=== PATIENT | male | born 1945 | race Caucasian/White ===

== ENCOUNTER 2020-03-20 11:56 | Emergency (ER) | payer MEDICARE, OTHER, SELFPAY ==
[2020-03-20 12:08] VITALS: BP 134/74; PULSE 74; RESP 18; TEMP 37.1; O2SAT 98
--- NOTE | 2020-03-20 12:11 | ED.URI ---
HPI - URI/Sore Throat General Chief Complaint: Upper Respiratory Infection Stated Complaint: upper respiratory infection Time Seen by Provider: 03/20/20 12:11 History of Present Illness HPI Narrative: Adalberto Nichols is a 74 yo male with a PMH of overactive bladder, HTN, GERD, high cholesterol, AAA, who comes to express care with scratchy throat and right ear pain that started on Tuesday. Ctzy-oja-pentcws treatment with no success with nyquil Related Data Home Medications Medication Instructions Recorded Confirmed Lactobac 40-Bifido 3-S.thermop 1 cap PO DAILY 03/20/20 03/20/20 [Probiotic] aspirin 81 mg PO DAILY 03/20/20 03/20/20 cetirizine [Zyrtec] 5 mg PO DAILY 03/20/20 03/20/20 finasteride [Proscar] 5 mg PO DAILY 03/20/20 03/20/20 fluticasone propionate [Flonase 1 spray INTRANASAL BID 03/20/20 03/20/20 Allergy Relief] metoprolol succinate [Toprol XL] 50 mg PO DAILY 03/20/20 03/20/20 mirabegron [Myrbetriq] 50 mg PO DAILY 03/20/20 03/20/20 cbktuncj-duf-AW-lycopen-lutein 1 tablet PO DAILY 03/20/20 03/20/20 [Centrum Silver] nystatin 1 applic TOPICAL DAILY 03/20/20 03/20/20 omega 1-xfw-ahp-fish oil [Fish Oil] 1 cap PO DAILY 03/20/20 03/20/20 pantoprazole [Protonix] 40 mg PO DAILY 03/20/20 03/20/20 psyllium husk [Metamucil] 1 tsp PO DAILY 03/20/20 03/20/20 simvastatin [Zocor] 40 mg PO DAILY 03/20/20 03/20/20 Allergies Allergy/AdvReac Type Severity Reaction Status Date / Time codeine AdvReac Severe VOMITING Verified 08/29/19 09:53 Review of Systems Review of Systems: Narrative: CONSTITUTIONAL: Denies fever, chills, sweats. EYES: Denies visual changes, redness, discharge. ENT: Denies rhinorrhea, has congestion, has sore throat, right otalgia. CARDIOVASCULAR: Denies chest pain, palpitations, edema. RESPIRATORY: Denies dyspnea, wheezing, cough GASTROINTESTINAL: Denies abdominal pain, nausea, vomiting, diarrhea. GENITOURINARY: Denies dysuria, hematuria, abnormal discharge SKIN: Denies rash or itching. NEUROLOGIC: Denies numbness, or focal weakness. PSYCHIATRIC: Denies anxiety or depression. [facility] Family History Family History Sibling Patient's brother is in good health Other Diabetes mellitus Family history of cardiovascular disease Hypertension Social History Social History Smoking status: Never smoker Alcohol intake: current Gender identity (if verbalized by the patient): Male Comments At time of signature, I agree with nursing past medical, surgical, social and family history. There is no relevant family history pertinent to the presenting complaint. Exam Narrative: Exam Narrative: GENERAL: This is a well-nourished, well-developed patient, in mild distress. HEAD: normocephalic, atraumatic. EYES: PERRL. Sclera clear/white. Vision is grossly intact. EARS: External ears normal, auditory L canal clear ,R tender, mild erythema. TMs normal without perforation. Hearing grossly intact. NOSE: External nose normal with nasal discharge, nares with redness, no rhinorrhea. THROAT: Mucous membranes moist, posterior pharynx erythema, no exudate NECK: Neck supple, non-tender CARDIOVASCULAR: Regular rate and rhythm without murmurs, gallops, or rubs. RESPIRATORY: Clear to auscultation. Breath sounds equal bilaterally. No wheezes, rales, or rhonchi. GASTROINTESTINAL: Abdomen soft, SKIN: warm, intact with no suspicious lesions or rash, good texture and turgor. NEURO: awake, alert, and oriented to person, place and time. There were no obvious focal neurologic abnormalities. Steady gait EXTREMITIES: Normal range of motion. BACK: Nontender without deformity Course Course Emergency Course: Started on prednsione and augmentin- discussed pros and cons of abx with sinuses, has hx of getting really ill without them Vital Signs Vital signs: Vital Signs Temperature 98.7 F 03/20/20 12:08 Pulse Ra
== END 2020-03-20 12:27 | disposition home or self-care (01) ==
PROVIDERS: Emergency Provider Nurse Practitioner
DX: J01.01 Acute recurrent maxillary sinusitis (principal); H66.001 Acute suppurative otitis media without spontaneous rupture of ear drum, right ear; I10 Essential (primary) hypertension; K21.9 Gastro-esophageal reflux disease without esophagitis; E78.00 Pure hypercholesterolemia, unspecified; I71.4 Abdominal aortic aneurysm, without rupture
CPT/HCPCS: 99213; G0463

== ENCOUNTER 2020-04-02 11:00 | Outpatient (CLI) | payer MEDICARE, OTHER, SELFPAY ==
--- NOTE | ~2020-04-02 | CT_ITS ---
EXAMINATION:CT chest wo con DATE: 04/02/2020 11:42 INDICATION: Aortic root dilatation. TECHNIQUE: Computed tomography (CT) of the chest was performed without intravenous contrast. Automate d exposure control and iterative reconstruction technique were employed. The dose-length product (DLP ) was 644.49 mGy-cm. COMPARISON: Chest CT 06/21/2019 FINDINGS: There is mild atelectasis bilaterally. No pleural effusion. The heart size is normal. There are coronary artery calcifications. No pericardial effusion. Thoracic aorta measures 4.7 cm at the s inuses of Valsalva, 3.9 cm at the annulus, 4.1 cm in the mid ascending aorta, 3.1 cm at the isthmus, and 2.8 cm in mid descending aorta. There is mild thoracic spondylosis. IMPRESSION: 1. Stable ectasia of ascending aorta. Reviewed, dictated and finalized at location A.
== END 2020-04-02 11:01 | disposition home or self-care (01) ==
PROVIDERS: Visit Provider Internal Medicine Cardiovascular Disease
DX: I77.810 Thoracic aortic ectasia (principal); I10 Essential (primary) hypertension
CPT/HCPCS: 71250

== ENCOUNTER 2020-09-14 10:42 | Emergency (ER) | payer MEDICARE, OTHER, SELFPAY ==
--- NOTE | 2020-09-14 10:45 | ED.SKABFB ---
HPI - Skin/Abscess/Foreign Bdy General Chief complaint: Skin/Abscess/Foreign Body Stated complaint: boil Time Seen by Provider: 09/14/20 10:55 Source: patient and RN notes reviewed Mode of arrival: ambulatory Limitations: no limitations History of Present Illness HPI narrative: 75-year male presents concern for a boil in his left axilla. Reports he has had a skin colored small bump in that area for many years, reports in the last several days the area turned red, tender and had purulent drainage. He denies any fever, malaise, arm swelling. MD complaint: abscess/boil Related Data Home Medications Medication Instructions Recorded Confirmed Lactobac 40-Bifido 3-S.thermop 1 cap PO DAILY 03/20/20 09/01/20 [Probiotic] aspirin 81 mg PO DAILY 03/20/20 09/01/20 cetirizine [Zyrtec] 5 mg PO DAILY 03/20/20 09/01/20 finasteride [Proscar] 5 mg PO DAILY 03/20/20 09/01/20 fluticasone propionate [Flonase 1 spray INTRANASAL BID 03/20/20 09/01/20 Allergy Relief] metoprolol succinate [Toprol XL] 50 mg PO DAILY 03/20/20 09/01/20 mirabegron [Myrbetriq] 50 mg PO DAILY 03/20/20 09/01/20 gasxhxoj-koo-OH-lycopen-lutein 1 tablet PO DAILY 03/20/20 09/01/20 [Centrum Silver] nystatin 1 applic TOPICAL DAILY 03/20/20 09/01/20 omega 9-ndq-jos-fish oil [Fish Oil] 1 cap PO DAILY 03/20/20 09/01/20 pantoprazole [Protonix] 40 mg PO DAILY 03/20/20 09/01/20 psyllium husk [Metamucil] 1 tsp PO DAILY 03/20/20 09/01/20 simvastatin [Zocor] 40 mg PO DAILY 03/20/20 09/01/20 Allergies Allergy/AdvReac Type Severity Reaction Status Date / Time codeine AdvReac Severe VOMITING Verified 09/01/20 10:56 Review of Systems Review of Systems: Narrative: CONSTITUTIONAL: Denies malaise, chills, sweats, or fever. CARDIOVASCULAR: Denies chest pain, palpitations, or edema. RESPIRATORY: Denies cough or dyspnea. SKIN: Painful red bump with drainage under his left arm MUSCULOSKELETAL: Denies musculoskeletal pain, myalgia. All systems reviewed & are unremarkable except as noted in HPI and below PMFSH Past Medical History Medical History (Updated 09/14/20 @ 11:07 by Ethel To NP) AAA (abdominal aortic aneurysm) Chronic pain of both knees Essential hypertension GERD (gastroesophageal reflux disease) High cholesterol HTN (hypertension) Rhinitis Surgical History Surgical History S/P trigger finger release Family History Family History Sibling Patient's brother is in good health Other Diabetes mellitus Family history of cardiovascular disease Hypertension Social History Social History Smoking status: Never smoker Alcohol intake: current Gender identity (if verbalized by the patient): Male Comments At time of signature, agree with nursing past medical, surgical, social and family history. There is no relevant family history pertinent to the presenting complaint Exam Narrative: Exam Narrative: GENERAL: Well-appearing, well-nourished, and in no acute distress. HEAD: Normocephalic EYES: PERRLA, conjunctivae clear ENT: Mucous membranes moist. NECK: Supple. CHEST: No respiratory distress. Speaks in full sentences. HEART: Regular rate and rhythm. SKIN: Warm, dry. 1 cm diameter erythematous papule with central scab surrounded by mild area of induration, erythema, no fluctuation noted NEURO: Alert and oriented x3. PSYCH: Normal mood and affect Course Course Emergency Course: Patient is aware of diagnosis, understands and agrees to treatment plan. Anticipatory guidance given. Patient agrees to follow-up as directed and is aware of reasons to seek care at the emergency department. Portions of this record may have been created with voice recognition software Vital Signs Vital signs: Vital Signs Temperature 97.7 F 09/14/20 10:54 Pulse Rate 63 09/14/20 10:54 Respiratory
[2020-09-14 10:54] VITALS: BP 165/98; PULSE 63; RESP 20; TEMP 36.5; O2SAT 100
== END 2020-09-14 11:11 | disposition home or self-care (01) ==
PROVIDERS: Emergency Provider Nurse Practitioner
DX: L02.422 Furuncle of left axilla (principal); I10 Essential (primary) hypertension; K21.9 Gastro-esophageal reflux disease without esophagitis; E78.00 Pure hypercholesterolemia, unspecified
CPT/HCPCS: 99213; G0463

== ENCOUNTER 2020-10-03 10:47 | Emergency (ER) | payer MEDICARE, OTHER, SELFPAY ==
[2020-10-03 11:08] VITALS: BP 148/82; PULSE 66; RESP 18; TEMP 36.6; O2SAT 97
--- NOTE | 2020-10-03 11:22 | ED.SKABFB ---
HPI - Skin/Abscess/Foreign Bdy General Chief complaint: Skin/Abscess/Foreign Body Stated complaint: infection on lips Time Seen by Provider: 10/03/20 11:08 Source: patient and RN notes reviewed Mode of arrival: ambulatory Limitations: no limitations History of Present Illness HPI narrative: Patient presents today complaining of a rash on his lower back x2 weeks. He believes it may be a heat rash. He reports occasional itching and no pain. Denies drainage. He has tried no treatment prior to arrival. States he does scrub it profusely in the shower with this washcloth. He also comes in complaining of cracking and pain to the corners of his mouth. Reports this has been occurring intermittently over the past 30 years for which she occasionally uses first-aid cream or Neosporin which usually takes care of the symptoms within 4 weeks. Pain typically increases if he opens his mouth very wide to eat. He was at his dentist a few months ago and was having symptoms and was given tube of nystatin. He applied it, which did help with the symptoms, but also caused his lips to become inflamed. He has an appointment with follow-up physician in a couple of months, but wanted to come in for evaluation today. Use Chapstick on the remainder multiple times per day. MD complaint: rash Related Data Home Medications Medication Instructions Recorded Confirmed Lactobac 40-Bifido 3-S.thermop 1 cap PO DAILY 03/20/20 10/03/20 [Probiotic] aspirin 81 mg PO DAILY 03/20/20 10/03/20 cetirizine [Zyrtec] 5 mg PO DAILY 03/20/20 10/03/20 finasteride [Proscar] 5 mg PO DAILY 03/20/20 10/03/20 fluticasone propionate [Flonase 1 spray INTRANASAL BID 03/20/20 10/03/20 Allergy Relief] metoprolol succinate [Toprol XL] 50 mg PO DAILY 03/20/20 10/03/20 mirabegron [Myrbetriq] 50 mg PO DAILY 03/20/20 09/01/20 nrjbijng-bln-CN-lycopen-lutein 1 tablet PO DAILY 03/20/20 10/03/20 [Centrum Silver] nystatin 1 applic TOPICAL DAILY 03/20/20 10/03/20 omega 2-frf-xcs-fish oil [Fish Oil] 1 cap PO DAILY 03/20/20 10/03/20 pantoprazole [Protonix] 40 mg PO DAILY 03/20/20 10/03/20 psyllium husk [Metamucil] 1 tsp PO DAILY 03/20/20 10/03/20 simvastatin [Zocor] 40 mg PO DAILY 03/20/20 10/03/20 finasteride 5 mg PO DAILY 10/03/20 10/03/20 nystatin [Nystop] 1,000 unit TOPICAL USEASDIRECTD 10/03/20 10/03/20 Allergies Allergy/AdvReac Type Severity Reaction Status Date / Time codeine AdvReac Severe VOMITING Verified 09/01/20 10:56 Review of Systems Review of Systems: Narrative: CONSTITUTIONAL: Denies body aches, fever, chills, or sweats. EYES: Denies visual changes, redness, or discharge. ENT: Denies rhinorrhea, congestion, sore throat, or otalgia. CARDIOVASCULAR: Denies chest pain, palpitations, or edema. RESPIRATORY: Denies cough or dyspnea. GASTROINTESTINAL: Denies abdominal pain, nausea, vomiting, or diarrhea. GENITOURINARY: Denies dysuria or hematuria. SKIN: Cracking at the corners of the mouth, rash to low back MUSCULOSKELETAL: Denies back pain, joint pain, or myalgia. NEUROLOGIC: Denies headache, numbness, tingling, or weakness. PSYCH: Denies depression or anxiety. [facility] Past Medical History Medical History (Updated 10/03/20 @ 11:24 by Roxana Kahn, [facility], ) AAA (abdominal aortic aneurysm) Chronic pain of both knees Essential hypertension GERD (gastroesophageal reflux disease) High cholesterol History of diverticulitis HTN (hypertension) Hx of hemorrhoids Rhinitis Surgical History Surgical History (Updated 09/26/20 @ 14:55 by Migue Vaughn CMA) History of artificial lens replacement History of colonoscopy 11/05/03, 04/23/05, 04/15/10, 06/22/13, 01/25/18, Hx of basal cell carcinoma excision Hx of prostate biopsy S/P trigger finger release Family History Family History (Updated 09/26/20 @ 11:54 by Migue Vaughn CMA) Sibling Patient's brother is in good health Father Acute myocardial infarction Grandparent , Paternal Grandfather Wi
== END 2020-10-03 11:31 | disposition home or self-care (01) ==
PROVIDERS: Emergency Provider Nurse Practitioner
DX: K13.0 Diseases of lips (principal); L30.9 Dermatitis, unspecified; I10 Essential (primary) hypertension; K21.9 Gastro-esophageal reflux disease without esophagitis; E78.00 Pure hypercholesterolemia, unspecified; Z96.1 Presence of intraocular lens; Z85.828 Personal history of other malignant neoplasm of skin
CPT/HCPCS: 99211; G0463

== ENCOUNTER → 2021-01-06 07:31 | Outpatient (CLI) | payer MEDICARE, OTHER, SELFPAY ==
[2021-01-06 20:30] LABS: SARS-CoV-2 RNA PCR Negative
== END ==
PROVIDERS: Visit Provider Family Medicine
DX: Z20.822 Contact with and (suspected) exposure to COVID-19 (principal)
CPT/HCPCS: C9803; U0003; U0005

== ENCOUNTER 2021-04-20 10:37 | Outpatient (CLI) | payer MEDICARE, OTHER, SELFPAY ==
--- NOTE | ~2021-04-20 | CT_ITS ---
EXAMINATION:CT diagnostic chest wo con DATE: 04/20/2021 11:11 INDICATION: Thoracic aortic aneurysm. TECHNIQUE: Computed tomography (CT) of the chest was performed without intravenous contrast. Automate d exposure control and iterative reconstruction technique were employed. The dose-length product (DLP ) was 448.21 mGy-cm. COMPARISON: Chest CT 04/02/2020, 02/25/12 FINDINGS: The lungs demonstrate mild atelectasis. No pleural effusion. There is a 1.6 cm nodule in le ft thyroid lobe, worsened from 02/25/12. The heart size is normal. There are coronary artery calcificat ions. No pericardial effusion. The aorta measures 4.4 cm at the sinuses of Valsalva, 3.7 cm at the si notubular junction, 4.0 cm in the mid ascending aorta, 3.1 cm at the isthmus, and 3.0 cm in the mid d escending aorta. There is mild thoracic spondylosis. IMPRESSION: 1. Stable ectasia of ascending aorta. 2. 1.6 cm left thyroid nodule. Consider thyroid ultrasound for risk stratification. Reviewed, dictated and finalized at location A. IMPRESSION: 1. Stable ectasia of ascending aorta. 2. 1.6 cm left thyroid nodule. Consider thyroid ultrasound for risk stratificat ion.
== END 2021-04-20 10:38 | disposition home or self-care (01) ==
PROVIDERS: Visit Provider Internal Medicine Cardiovascular Disease
DX: I77.810 Thoracic aortic ectasia (principal); E04.1 Nontoxic single thyroid nodule
CPT/HCPCS: 71250

== ENCOUNTER 2021-05-22 12:18 | Outpatient (CLI) | payer MEDICARE, OTHER, SELFPAY ==
--- NOTE | ~2021-05-22 | US_ITS ---
EXAMINATION: US thyroid DATE: 05/22/2021 16:16 INDICATION: Nontoxic single thyroid nodule. TECHNIQUE: Multiple ultrasound images of the thyroid were obtained. COMPARISON: None. FINDINGS: The right thyroid lobe measures 4.6 x 1.8 x 1.5 cm. The left thyroid lobe measures 4.2 x 1.8 x 1.9 c m. In the left thyroid lobe, there is a 2.1 cm mixed cystic and solid, hypoechoic, dvixb-[id number]-lmkl n odule with ill-defined margin without echogenic foci (TI-RADS TR3). There is a 3 mm nodule in right t hyroid lobe. IMPRESSION: 1. Left thyroid nodule. Thyroid ultrasound is recommended in one year. Reviewed, dictated and finalized at location A.
== END 2021-05-22 12:19 | disposition home or self-care (01) ==
LOC: ANHIMG 12:22
PROVIDERS: PCP Family Medicine; Visit Provider Otolaryngology
DX: E04.1 Nontoxic single thyroid nodule (principal)
CPT/HCPCS: 76536

== ENCOUNTER 2022-01-16 19:09 | Emergency (ER) | payer MEDICARE, OTHER, SELFPAY ==
[2022-01-16 19:18] VITALS: BP 132/71; PULSE 79; RESP 18; TEMP 37.1; O2SAT 96
--- NOTE | 2022-01-16 19:44 | ED.GENADULT ---
HPI - General Adult General Chief complaint: Upper Respiratory Infection Stated complaint: sorethroat,cough Source: patient Mode of arrival: ambulatory Limitations: no limitations History of Present Illness HPI narrative: Patient presents for evaluation of respiratory symptoms for the last 2 days. He reports sinus congestion, thick yellow discharge from his nares, sore throat, body aches. No fever, chills, nausea, vomiting. Two of his friends were recently ill but isolated and pt does not think he was exposed to any illness. He has received COVID vaccination x2 and both boosters. He does not smoke. He is using Flonase, cetirizine, DayQuil and NyQuil with mild improvement in his symptoms. He does admit to coughing up some phlegm but states it is from post-nasal drainage as opposed to chest congestion. He denies any SOB or chest pain. Related Data Home Medications Medication Instructions Recorded Confirmed hxeaxasw-tjc-KH-lycopen-lutein 1 tablet PO DAILY 03/20/20 01/16/22 [Centrum Silver] omega 5-oks-oxt-fish oil [Fish Oil] 1 cap PO DAILY 03/20/20 01/16/22 psyllium husk [Metamucil] 1 tsp PO DAILY 03/20/20 01/16/22 finasteride 5 mg tablet 5 mg PO DAILY 12/18/20 01/16/22 mirabegron 50 mg tablet,extended 50 mg PO DAILY 12/18/20 01/16/22 release 24 hr ketoconazole 2 % topical cream 1 applic TOPICAL DAILY 09/01/21 01/16/22 Allergies Allergy/AdvReac Type Severity Reaction Status Date / Time codeine AdvReac Severe VOMITING Verified 01/16/22 19:32 Review of Systems Review of Systems: CONSTITUTIONAL: Denies fever, chills, or sweats. EYES: Denies visual changes, redness, or discharge. ENT: Reports sinus congestion, yellow drainage from his nares and sore throat. CARDIOVASCULAR: Denies chest pain, palpitations, or edema. RESPIRATORY: Denies cough or dyspnea. GASTROINTESTINAL: Denies abdominal pain, nausea, vomiting, or diarrhea. GENITOURINARY: Denies dysuria or hematuria. SKIN: Denies rash or itching. MUSCULOSKELETAL: Reports body aches NEUROLOGIC: Denies headache, numbness, dizziness, or weakness. PSYCHIATRIC: Denies anxiety or depression. [facility] Past Medical History Medical History AAA (abdominal aortic aneurysm) CT of the chest on 04/20/2021 with thoracic aorta 4.4 cm, 3.7 cm, and 4.0 cm, unchanged. Bilateral hip bursitis BMI 30.0-30.9,adult BMI 31.0-31.9,adult BPH without obstruction/lower urinary tract symptoms followed by urologist Chronic kidney disease (CKD) stage G3a/A1, moderately decreased glomerular filtration rate (GFR) between 45-59 mL/min/1.73 square meter and albuminuria creatinine ratio less than 30 mg/g Chronic pain of both knees Edema of knee Elevated PSA elevated at 21 on 08/28/2014 Encounter for screening for other viral diseases Essential hypertension GERD (gastroesophageal reflux disease) High cholesterol History of diverticulitis HTN (hypertension) Hx of hemorrhoids Increased BMI Mixed hyperlipidemia Polyp of colon last colonoscopy 01/25/2018 normal Rhinitis Seasonal allergic rhinitis Sebaceous cyst Thyroid nodule greater than or equal to 1.5 cm in diameter incidentally noted on imaging study (~02/25/12) 1.6 cm nodule left thyroid lobe on CT of the chest on 04/20/2021, increased from 02/25/2012. Surgical History Surgical History History of artificial lens replacement History of colonoscopy 11/05/03, 04/23/05, 04/15/10, 06/22/13, 01/25/18, Hx of basal cell carcinoma excision Hx of prostate biopsy S/P trigger finger release Family History Family History Sibling Patient's brother is in good health Father Acute myocardial infarction Grandparent , Paternal Grandfather Carroll at age 55 Acute myocardial infarction Grandparent , Maternal Grandfather Acute myocardial infarction S
== END 2022-01-16 19:49 | disposition home or self-care (01) ==
PROVIDERS: Emergency Provider Nurse Practitioner; PCP Family Medicine
DX: U07.1 COVID-19 (principal); I12.9 Hypertensive chronic kidney disease with stage 1 through stage 4 chronic kidney disease, or unspecified chronic kidney disease; N18.31 Chronic kidney disease, stage 3a; E78.2 Mixed hyperlipidemia
CPT/HCPCS: 87081; 87426; 87804; 87880; 99213; C9803; G0463

== ENCOUNTER 2022-04-22 12:53 | Outpatient (CLI) | payer MEDICARE, OTHER, SELFPAY ==
--- NOTE | ~2022-04-22 | CT_ITS ---
EXAMINATION: CT diagnostic chest wo con DATE: 04/22/2022 13:16 INDICATION: Aortic root dilatation TECHNIQUE: Computed tomography (CT) of the chest was performed without intravenous contrast. Addition al 3D reconstructions utilizing coronal maximum intensity projection (MIP) were performed. Automated exposure control and iterative reconstruction technique were employed. The dose-length product was 49 2.27 mGy-cm. COMPARISON: 04/20/2021 FINDINGS: Linear discoid atelectasis/scarring in the basilar left lower lobe. No pneumonia, pulmonary edema or pleural effusion. Unchanged 2 mm calcified calcified left lower lobe nodule consistent with old granu lomatous disease. Heart size is normal. Atherosclerotic coronary artery calcific location. No pericar dial effusion. Aneurysmal dilation of the ascending thoracic aorta measuring 4.4 to 4.5 cm at the sin us of Valsalva, 3.7 x 3.5 cm at the sinotubular junction, 4.2 x 4.2 cm at the mid ascending thoracic aorta 3.2 x 3.3 cm the isthmus and 3.0 x 2.9 cm in the mid descending thoracic aorta. No pathological ly enlarged abdominal or pelvic lymphadenopathy. No significant change in a 2 cm left thyroid nodule, TI-RADS 3 on ultrasound dated 05/22/2021. Tiny calcified gallstones along the dependent wall of the ot herwise normal appearing gallbladder. Visualized upper abdomen is otherwise unremarkable. Moderate th oracic spondylosis with chronic minimal anterior wedging at T7-T9. IMPRESSION: 1. No significant interval change in ectasia of the ascending thoracic aorta. Reviewed, dictated and finalized at location A.
== END 2022-04-22 12:54 | disposition home or self-care (01) ==
LOC: ANHIMG 12:56
PROVIDERS: PCP Family Medicine; Visit Provider Internal Medicine Cardiovascular Disease
DX: I77.810 Thoracic aortic ectasia (principal); I25.10 Atherosclerotic heart disease of native coronary artery without angina pectoris; M47.814 Spondylosis without myelopathy or radiculopathy, thoracic region; M48.54XA Collapsed vertebra, not elsewhere classified, thoracic region, initial encounter for fracture
CPT/HCPCS: 71250

== ENCOUNTER 2022-10-21 10:55 | Outpatient (CLI) | payer MEDICARE, OTHER, SELFPAY ==
--- NOTE | ~2022-10-21 | CT_ITS ---
CT Scan of the Chest without Contrast: Clinical Indication: Aortic root dilatation Technique: Contiguous sections were acquired throughout the chest without intravenous contrast. Dose reduction technique was used on this scan by utilizing automated exposure control and iterative recon struction technique. The dose-length product (DLP) was 643.03 mGy-cm. COMPARISON: 04/22/2022 Findings: There is no evidence of any significant mediastinal, hilar or axillary lymphadenopathy. Coronary ozzy ry calcifications are present. Aortic root/ascending aorta is mildly dilated to maximum of 4.4 cm in diameter. There is no evidence of pleural or pericardial effusion. The lungs are clear. No pulmonary nodules or infiltrates are noted. Images through the upper abdomen reveal no abnormalities. Impression: Mild aneurysmal dilatation ascending aorta, as detailed above, essentially stable from prior exam. Reviewed, dictated and finalized at [facility]. [facility] [employer] Impression: Mild aneurysmal dilatation ascending aorta, as detailed above, essentially stab le from prior exam.
== END 2022-10-21 10:56 | disposition home or self-care (01) ==
PROVIDERS: PCP Family Medicine; Visit Provider Internal Medicine Cardiovascular Disease
DX: I77.810 Thoracic aortic ectasia (principal)
CPT/HCPCS: 71250

== ENCOUNTER 2022-11-26 11:44 | Emergency (ER) | payer MEDICARE, OTHER, SELFPAY ==
[2022-11-26 11:55] VITALS: BP 125/69; PULSE 60; RESP 18; TEMP 36.4; O2SAT 97
--- NOTE | 2022-11-26 11:55 | ED.WOUNDLAC ---
HPI - Wound/Laceration General Chief Complaint: Wound/Laceration Stated Complaint: rt foot laceration,fall Time Seen by Provider: 11/26/22 11:55 Source: patient, RN notes reviewed and old records reviewed Mode of arrival: ambulatory Limitations: no limitations History of Present Illness HPI narrative: 77-year-old male presents to the [facility] with a wound to the dorsal aspect right great toe. Patient states 2 weeks ago he tripped and fell causing abrasions to the tops of his toes. Rest of the abrasions are healing, redness, inflammation and yellow discharge started today. Has been keeping a bandage on it, cleaning it and applying antibiotic ointment Related Data Home Medications Medication Instructions Recorded Confirmed aiuphurp-hin-morfc acid 0.4 1 tablet PO DAILY 03/20/20 11/26/22 mg-lycopene 300 mcg-lutein 250 mcg tablet (Centrum Silver) omega 4-qxg-htk-fish oil 1,000 mg 1 cap PO DAILY 03/20/20 11/26/22 (120 mg-180 mg) capsule (Fish Oil) psyllium husk 3.4 gram/5.4 gram 1 tsp PO DAILY 03/20/20 11/26/22 oral powder (Metamucil) finasteride 5 mg tablet 5 mg PO DAILY 12/18/20 11/26/22 mirabegron 50 mg tablet,extended 50 mg PO DAILY 12/18/20 11/26/22 release 24 hr (Myrbetriq) rosuvastatin 40 mg tablet (Crestor) 40 mg PO DAILY 05/27/22 11/26/22 ketoconazole 2 % topical cream 1 applic topical BID 11/26/22 11/26/22 Allergies Allergy/AdvReac Type Severity Reaction Status Date / Time codeine AdvReac Intermediate VOMITING Verified 11/26/22 11:53 Review of Systems Review of Systems: All systems reviewed & are unremarkable except as noted in HPI and below Constitutional: Constitutional: Reports no additional constitutional complaints Eyes: Eyes: Reports no additional eye complaints ENT: Reports system reviewed and no additional complaints, except as documented Cardiovascular: Cardiovascular: Reports no additional cardiovascular complaints, Denies chest pain and Denies dyspnea Respiratory: Respiratory: Reports no additional respiratory complaints, Denies chest congestion, Denies cough and Denies dyspnea Gastrointestinal: Gastrointestinal: Reports no additional gastrointestinal complaints, Denies abdominal pain, Denies nausea and Denies vomiting Musculoskeletal: Musculoskeletal: Reports no additional musculoskeletal complaints Integumentary/Breasts: Skin/Breast: Reports as per HPI, Reports swelling and Reports wounds Neurologic: Reports system reviewed and no additional complaints, except as documented Psychiatric: Psychiatric: Reports no additional psychiatric complaints Allergic/Immunologic: Allergic/Immunologic: Reports no additional allergic/immunologic complaints [facility] Past Medical History Medical History (Updated 11/26/22 @ 12:15 by Ethel Stoner, ACETYLENE GAS COMPRESSOR) AAA (abdominal aortic aneurysm) CT of the chest on 04/20/2021 with thoracic aorta 4.4 cm, 3.7 cm, and 4.0 cm, unchanged. Bilateral hip bursitis BMI 30.0-30.9,adult BMI 31.0-31.9,adult BMI 32.0-32.9,adult BPH without obstruction/lower urinary tract symptoms followed by urologist Chronic kidney disease (CKD) stage G3a/A1, moderately decreased glomerular filtration rate (GFR) between 45-59 mL/min/1.73 square meter and albuminuria creatinine ratio less than 30 mg/g BUN 18, creatinine 1.34, GFR 52 on 05/12/2021. BUN 15, creatinine 1.19 with GFR 64 on 04/23/2022. Chronic pain of both knees Edema of knee Elevated PSA elevated at 21 on 08/28/2014 Encounter for screening for other viral diseases Essential hypertension GERD (gastroesophageal reflux disease) High cholesterol History of diverticulitis HTN (hypertension) Hx of hemorrhoids Increased BMI Mixed hyperlipidemia Total cholesterol 151, triglycerides 130, HDL 41 and LDL 87 on 05/12/2021. Cholesterol 108, HDL 38, triglycerides 105 LDL 45 on 10/14/2022 Obesity (BMI 30.0-34.9) Polyp of colon last colonoscopy 01/25/2018 normal Rhinitis Seasonal allergic rhinitis Sebaceous cyst Thyroid
[2022-11-26] MEDS: TETANUS/DIPHTHERIA TOXOIDS ADSORB 0.5 ML VIAL (*BKC) IM (12:05)
== END 2022-11-26 12:18 | disposition home or self-care (01) ==
PROVIDERS: Emergency Provider Nurse Practitioner; PCP Family Medicine
DX: S90.414A Abrasion, right lesser toe(s), initial encounter (principal); I12.9 Hypertensive chronic kidney disease with stage 1 through stage 4 chronic kidney disease, or unspecified chronic kidney disease; N18.31 Chronic kidney disease, stage 3a; E78.2 Mixed hyperlipidemia; Z23 Encounter for immunization; W01.0XXA Fall on same level from slipping, tripping and stumbling without subsequent striking against object, initial encounter
CPT/HCPCS: 87070; 87075; 87076; 87205; 90471; 90714; 99213; G0463

== ENCOUNTER 2023-02-02 09:49 | Emergency (ER) | payer MEDICARE, OTHER, SELFPAY ==
[2023-02-02 10:07] VITALS: BP 121/75; PULSE 61; RESP 16; TEMP 36; O2SAT 99
--- NOTE | 2023-02-02 10:08 | ED.URI ---
HPI - URI/Sore Throat General Chief Complaint: Upper Respiratory Infection Stated Complaint: lesions in throat Time Seen by Provider: 02/02/23 10:05 Source: patient Mode of arrival: ambulatory Limitations: no limitations History of Present Illness HPI Narrative: Patient is a 77-year-old male that presents with sore throat last night. Patient states it has improved today. Patient had similar symptoms with fever and congestion 2 weeks ago. Patient took Mucinex an allergy medicine and symptoms resolved. Patient continues to take daily Zyrtec and Flonase. Patient requesting testing for strep, COVID, flu to ensure he will knock it his mother sick in the skilled nursing. Patient denies any fever, chills, congestion, ear pain, nausea, vomiting, diarrhea. Related Data Home Medications Medication Instructions Recorded Confirmed jdwgsfhb-ypk-wbxqx acid 0.4 1 tablet PO DAILY 03/20/20 02/02/23 mg-lycopene 300 mcg-lutein 250 mcg tablet (Centrum Silver) omega 0-ghm-zsr-fish oil 1,000 mg 1 cap PO DAILY 03/20/20 02/02/23 (120 mg-180 mg) capsule (Fish Oil) psyllium husk 3.4 gram/5.4 gram 1 tsp PO DAILY 03/20/20 02/02/23 oral powder (Metamucil) finasteride 5 mg tablet 5 mg PO DAILY 12/18/20 02/02/23 mirabegron 50 mg tablet,extended 50 mg PO DAILY 12/18/20 02/02/23 release 24 hr (Myrbetriq) rosuvastatin 40 mg tablet (Crestor) 40 mg PO DAILY 05/27/22 02/02/23 ketoconazole 2 % topical cream 1 applic topical BID 11/26/22 02/02/23 Allergies Allergy/AdvReac Type Severity Reaction Status Date / Time codeine AdvReac Intermediate VOMITING Verified 02/02/23 10:08 Review of Systems Review of Systems: All systems reviewed & are unremarkable except as noted in HPI and below Constitutional: Constitutional: Denies body ache(s), Denies chills, Denies fatigue, Denies fever(s), Denies headache(s), Denies malaise and Denies weakness Eyes: Eyes: Denies blurry vision, Denies itchy eyes and Denies loss of vision ENT: Denies otalgia, Denies headache(s), Denies nasal congestion, Denies sinus pain and Reports sore throat Cardiovascular: Cardiovascular: Denies chest pain, Denies irregular heart rhythm and Denies dyspnea Respiratory: Respiratory: Denies cough and Denies dyspnea Gastrointestinal: Gastrointestinal: Denies abdominal pain, Denies diarrhea, Denies nausea and Denies vomiting Musculoskeletal: Musculoskeletal: Denies back pain, Denies myalgias and Denies arthralgias Integumentary/Breasts: Skin/Breast: Denies pruritus and Denies rash Neurologic: Denies headache(s), Denies loss of vision and Denies weakness Psychiatric: Psychiatric: Reports no additional psychiatric complaints Endocrine: Endocrine: Denies fatigue Allergic/Immunologic: Allergic/Immunologic: Denies itchy eyes PMFSH Past Medical History Medical History (Updated 02/02/23 @ 10:40 by Roz Arnold, DIE MAKER [employer]CH STAMPING) AAA (abdominal aortic aneurysm) CT of the chest on 04/20/2021 with thoracic aorta 4.4 cm, 3.7 cm, and 4.0 cm, unchanged. Abnormal fasting glucose (10/11/22) fasting glucose 109 on 11/11/2022. Abrasion foot/toe (11/16/22) great toes and knee after fall At moderate risk for fall (11/16/22) tripped on package on front porch Bilateral hip bursitis BMI 30.0-30.9,adult BMI 31.0-31.9,adult BMI 32.0-32.9,adult BPH without obstruction/lower urinary tract symptoms followed by urologist Chronic kidney disease (CKD) stage G3a/A1, moderately decreased glomerular filtration rate (GFR) between 45-59 mL/min/1.73 square meter and albuminuria creatinine ratio less than 30 mg/g BUN 18, creatinine 1.34, GFR 52 on 05/12/2021. BUN 15, creatinine 1.19 with GFR 64 on 04/23/2022. Chronic pain of both knees Edema of knee Elevated PSA elevated at 21 on 08/28/2014 Encounter for screening for other viral diseases Essential hypertension GERD (gastroesophageal reflux disease) High cholesterol History of diverticulitis HTN (hypertension) Hx of hemorrhoids Increased BMI Mixed hyperli
== END 2023-02-02 10:43 | disposition home or self-care (01) ==
PROVIDERS: Emergency Provider Nurse Practitioner Family; PCP Family Medicine
DX: J06.9 Acute upper respiratory infection, unspecified (principal); Z20.822 Contact with and (suspected) exposure to COVID-19; N40.0 Benign prostatic hyperplasia without lower urinary tract symptoms; I12.9 Hypertensive chronic kidney disease with stage 1 through stage 4 chronic kidney disease, or unspecified chronic kidney disease; N18.30 Chronic kidney disease, stage 3 unspecified; K21.9 Gastro-esophageal reflux disease without esophagitis; E78.00 Pure hypercholesterolemia, unspecified; E78.2 Mixed hyperlipidemia; E66.9 Obesity, unspecified; Z68.31 Body mass index [BMI] 31.0-31.9, adult; Z85.828 Personal history of other malignant neoplasm of skin
CPT/HCPCS: 87081; 87426; 87804; 87880; 99213; C9803; G0463

== ENCOUNTER 2023-03-14 10:11 | Emergency (ER) | payer MEDICARE, OTHER, SELFPAY ==
--- NOTE | 2023-03-14 10:18 | ED.URI ---
HPI - URI/Sore Throat General Chief Complaint: Upper Respiratory Infection Stated Complaint: cold symptoms Time Seen by Provider: 03/14/23 10:17 Source: patient Mode of arrival: ambulatory Limitations: no limitations History of Present Illness HPI Narrative: Patient is a 77-year-old male who presents with scratchy throat and eye irritation since . Patient got back from [place] on Tuesday. Patient denies fever, ear pain, headache, congestion, cough, nausea, vomiting, diarrhea. Patient would like testing for COVID. Patient takes daily Zyrtec and Flonase. Related Data Home Medications Medication Instructions Recorded Confirmed vxeewcnq-rac-kauag acid 0.4 1 tablet PO DAILY 03/20/20 02/02/23 mg-lycopene 300 mcg-lutein 250 mcg tablet (Centrum Silver) omega 9-clb-khj-fish oil 1,000 mg 1 cap PO DAILY 03/20/20 02/02/23 (120 mg-180 mg) capsule (Fish Oil) psyllium husk 3.4 gram/5.4 gram 1 tsp PO DAILY 03/20/20 02/02/23 oral powder (Metamucil) finasteride 5 mg tablet 5 mg PO DAILY 12/18/20 02/02/23 mirabegron 50 mg tablet,extended 50 mg PO DAILY 12/18/20 02/02/23 release 24 hr (Myrbetriq) rosuvastatin 40 mg tablet (Crestor) 40 mg PO DAILY 05/27/22 02/02/23 ketoconazole 2 % topical cream 1 applic topical BID 11/26/22 02/02/23 Allergies Allergy/AdvReac Type Severity Reaction Status Date / Time codeine AdvReac Intermediate VOMITING Verified 02/02/23 10:08 Review of Systems Review of Systems: All systems reviewed & are unremarkable except as noted in HPI and below Constitutional: Constitutional: Denies body ache(s), Denies chills, Denies fatigue, Denies fever(s), Denies headache(s), Denies malaise and Denies weakness Eyes: Eyes: Denies blurry vision, Reports itchy eyes and Denies loss of vision ENT: Denies otalgia, Denies headache(s), Denies nasal congestion, Denies sinus pain, Denies sore throat and Reports other (Scratchy throat) Cardiovascular: Cardiovascular: Denies chest pain, Denies irregular heart rhythm and Denies dyspnea Respiratory: Respiratory: Reports cough and Denies dyspnea Gastrointestinal: Gastrointestinal: Denies abdominal pain, Denies diarrhea, Denies nausea and Denies vomiting Musculoskeletal: Musculoskeletal: Denies back pain, Denies myalgias and Denies arthralgias Integumentary/Breasts: Skin/Breast: Denies pruritus and Denies rash Neurologic: Denies headache(s), Denies loss of vision and Denies weakness Psychiatric: Psychiatric: Reports no additional psychiatric complaints Endocrine: Endocrine: Denies fatigue Allergic/Immunologic: Allergic/Immunologic: Denies itchy eyes PMFSH Past Medical History Medical History (Updated 03/14/23 @ 10:47 by Roz Arnold, FORKLIFT TRUCK MECHANIC) AAA (abdominal aortic aneurysm) CT of the chest on 04/20/2021 with thoracic aorta 4.4 cm, 3.7 cm, and 4.0 cm, unchanged. Abnormal fasting glucose (10/11/22) fasting glucose 109 on 11/11/2022. Abrasion foot/toe (11/16/22) great toes and knee after fall At moderate risk for fall (11/16/22) tripped on package on front porch Bilateral hip bursitis BMI 30.0-30.9,adult BMI 31.0-31.9,adult BMI 32.0-32.9,adult BPH without obstruction/lower urinary tract symptoms followed by urologist Chronic kidney disease (CKD) stage G3a/A1, moderately decreased glomerular filtration rate (GFR) between 45-59 mL/min/1.73 square meter and albuminuria creatinine ratio less than 30 mg/g BUN 18, creatinine 1.34, GFR 52 on 05/12/2021. BUN 15, creatinine 1.19 with GFR 64 on 04/23/2022. Chronic pain of both knees Edema of knee Elevated PSA elevated at 21 on 08/28/2014 Encounter for screening for other viral diseases Essential hypertension GERD (gastroesophageal reflux disease) High cholesterol History of diverticulitis HTN (hypertension) Hx of hemorrhoids Increased BMI Mixed hyperlipidemia Total cholesterol 151, triglycerides 130, HDL 41 and LDL 87 on 05/12/2021. Cholesterol 108, HDL 38, triglycerides 105 LDL 45 on 10/14/2022,. maurice
== END 2023-03-14 10:51 | disposition home or self-care (01) ==
PROVIDERS: Emergency Provider Nurse Practitioner Family; PCP Family Medicine
DX: J06.9 Acute upper respiratory infection, unspecified (principal); Z20.822 Contact with and (suspected) exposure to COVID-19; N40.0 Benign prostatic hyperplasia without lower urinary tract symptoms; I12.9 Hypertensive chronic kidney disease with stage 1 through stage 4 chronic kidney disease, or unspecified chronic kidney disease; N18.31 Chronic kidney disease, stage 3a; K21.9 Gastro-esophageal reflux disease without esophagitis; E78.00 Pure hypercholesterolemia, unspecified; E78.2 Mixed hyperlipidemia; E66.9 Obesity, unspecified; Z85.828 Personal history of other malignant neoplasm of skin; Z96.1 Presence of intraocular lens
CPT/HCPCS: 87426; 99213; C9803; G0463

== ENCOUNTER 2023-11-04 12:58 | Outpatient (CLI) | payer MEDICARE, OTHER, SELFPAY ==
--- NOTE | ~2023-11-04 | CT_ITS ---
EXAMINATION: CT diagnostic chest wo con DATE: 11/04/2023 13:31 INDICATION: Aortic root dilatation TECHNIQUE: Computed tomography (CT) of the chest was performed without intravenous contrast. The dose -length product (DLP) was 798.87 mGy-cm. Automated exposure control and iterative reconstruction tech [employer] were employed. COMPARISON: 10/21/2022 FINDINGS: The ascending aorta measures 4.2 cm at the sinuses of Valsalva, 3.5 cm at the sinotubular j unction, and 4.1 cm the level of the main pulmonary artery. There is mild dependent atelectasis of th e lungs. No pleural effusion or pneumothorax. Calcified coronary artery atherosclerosis is noted. No pathologically enlarged thoracic lymph nodes are identified. The heart size is normal. There is moder ate thoracic spondylosis. IMPRESSION: 1. Aortic dilatation measuring up to 4.2 cm at the sinuses of Valsalva. Reviewed, dictated and finalized at location B. SAW OPERATOR
== END 2023-11-04 12:59 | disposition home or self-care (01) ==
LOC: ANHIMG 13:01
PROVIDERS: PCP Family Medicine; Visit Provider Internal Medicine Cardiovascular Disease
DX: I77.810 Thoracic aortic ectasia (principal)
CPT/HCPCS: 71250

== ENCOUNTER 2024-01-27 12:38 | Observation (INO) | payer MEDICARE, OTHER, SELFPAY ==
[2024-01-27] VITALS (44 sets, daily range): BP systolic 104–157; BP diastolic 63–105; PULSE 48–63; RESP 11–22; TEMP 36.4–36.8; O2SAT 94–100; BMI 31.6
--- NOTE | ~2024-01-27 | CT_ITS ---
EXAMINATION: CTA chest DATE: 01/27/2024 13:20 INDICATION: Right chest pain. TECHNIQUE: Computed tomographic angiography (CTA) of the chest was performed with 100 mL Omnipaque-35 0 intravenous contrast. Automated exposure control and iterative reconstruction technique were employ ed. The dose-length product was 918.47 mGy-cm. Maximum intensity projection 3D-reconstructions of the aorta and other arteries were constructed by the technologist on a separate workstation. COMPARISON: Chest CT 11/04/2023 FINDINGS: The lungs demonstrate mild atelectasis. No pleural effusion. The heart size is normal. Ther e are coronary artery calcifications. No pericardial effusion. There is mild aortic atherosclerosis. There is no significant stenosis of celiac axis, superior mesenteric artery, or the renal arteries. T he aorta measures 4.6 cm at the sinuses of Valsalva, 3.8 cm at the sinotubular junction, 4.2 cm in th e mid ascending aorta, 2.8 cm at the aortic isthmus, and 3.1 cm in the mid descending aorta. There is severe cervical spondylosis and mild thoracic spondylosis. There is mild chronic height loss of mult iple vertebral bodies. IMPRESSION: 1. Aortic ectasia measuring up to 4.6 cm at the sinuses of Valsalva. Reviewed, dictated and finalized at location A.
--- NOTE | 2024-01-27 12:38 | ECG_ITS ---
SEE SCANNED COPY FOR CONFIRMED REPORT MTDD
[2024-01-27 13:02] LABS: INR 0.9; Prothrombin Time 12.8 Seconds (11.1-14.7)
[2024-01-27] MEDS: NITROGLYCERIN SL 0.4 MG TABLET SUBLINGUAL ×2 (13:02→23:23)
[2024-01-27 13:04] LABS: Alanine Aminotransferase 26 U/L (6-50); Albumin Level 4.3 g/dL (3.5-5.1); Alkaline Phosphatase 70 U/L (38-126); Anion Gap 8 mmol/L (4-12); Aspartate Amino Transferase 29 U/L (17-59); Basophils Absolute Auto 0.1 K/mm3 (0.0-0.1); Basophils Percent Auto 0.9 % (0.2-1.2); Bilirubin,Total 0.5 mg/dL (0.2-1.3); Blood Urea Nitrogen 18 mg/dL (9-20); Calcium 9.1 mg/dL (8.4-10.2); Carbon Dioxide 23 mmol/L (22-30); Chloride 108 mmol/L (98-107); Eosinophils Absolute Auto 0.2 K/mm3 (0-0.3); Estimated CRCL calculation 64 ml/min; Estimated Glomerular Filt Rate > 60; Glucose 101 mg/dL (65-110); Hematocrit 41.5 % (42.0-52.0); Hemoglobin 14.1 g/dL (14.0-18.0); Immature Granulocyte Absolute 0.01 K/mm3 (0.00-0.031); Immature Granulocyte Percent A 0.2 % (0-0.5); Lipase 210 U/L (23-300); Lymphocytes Absolute Auto 2.02 K/mm3 (0.9-3.2); Lymphocytes Percent Auto 37.1 % (18.3-44.2); Mean Corpuscular Hemoglobin 32.6 pg (26-34); Mean Corpuscular Volume 96.1 fl (80-100); Mean Platelet Volume 9.5 fl (7.4-10.4); Monocytes Absolute Auto 0.5 K/mm3 (0.1-0.6); Neutrophils Absolute Auto 2.7 K/mm3 (1.3-6.7); Neutrophils Percent Auto 48.8 % (45.5-73.1); Platelet Count Result 226 k/mm3 (150-375); Potassium 4.3 mmol/L (3.4-5.0); Red Blood Count 4.32 M/mm3 (4.6-6.20); Red Cell Distribution Width 12.6 % (11.5-14.5); Sodium 139 mmol/L (137-145); White Blood Count 5.5 K/mm3 (4.5-10.0)
[2024-01-27 13:12] LABS: Partial Thromboplastin Time 29.8 Seconds (22.3-36.8)
[2024-01-27 13:14] LABS: Troponin I < 0.012 ng/mL (0.000-0.034)
[2024-01-27] MEDS: ASPIRIN 81 MG CHEWABLE TABLET 324 MG PO (13:36)
--- NOTE | 2024-01-27 13:40 | ED.CHESTPAIN ---
HPI - Chest Pain General Chief Complaint: Chest Pain Stated Complaint: chest pain Time Seen by Provider: 01/27/24 12:53 History of Present Illness HPI narrative: patient is a 78-year-old male who presents ER with sudden onset right-sided chest pain. Occurred 30 minutes prior to arrival while he was sitting at the computer reading about [employer]. Pain was 10/10. It radiated to his right back up his right neck and down his right arm. Is currently 6/10. After nitroglycerin it is 2/10. No history of coronary disease. He has a known ascending aortic aneurysm. Related Data Home Medications Medication Instructions Recorded Confirmed yftzfics-shp-bsxda acid 0.4 1 tablet PO DAILY 03/20/20 01/27/24 mg-lycopene 300 mcg-lutein 250 mcg tablet (Centrum Silver) omega 9-vuj-dvc-fish oil 1,000 mg 1 cap PO DAILY 03/20/20 01/27/24 (120 mg-180 mg) capsule (Fish Oil) psyllium husk 3.4 gram/5.4 gram 1 tsp PO DAILY 03/20/20 01/27/24 oral powder (Metamucil) finasteride 5 mg tablet 5 mg PO HS 12/18/20 01/27/24 mirabegron 50 mg tablet,extended 50 mg PO HS 12/18/20 01/27/24 release 24 hr (Myrbetriq) rosuvastatin 40 mg tablet (Crestor) 40 mg PO HS 05/27/22 01/27/24 cetirizine 10 mg tablet (Zyrtec) 10 mg PO HS PRN allergy symptoms 01/27/24 01/27/24 fluticasone propionate 50 1 spray intranasal Q12H 01/27/24 01/27/24 mcg/actuation nasal spray,suspension (Flonase Allergy Relief) metoprolol tartrate 25 mg tablet 25 mg PO Q12H 01/27/24 01/27/24 Allergies Allergy/AdvReac Type Severity Reaction Status Date / Time codeine AdvReac Severe VOMITING Verified 01/27/24 19:49 Opioids - Morphine Analogues AdvReac Vomiting Verified 01/27/24 19:49 Review of Systems Review of Systems: All systems reviewed & are unremarkable except as noted in HPI and below Constitutional: Constitutional: Reports no additional constitutional complaints ENT: Reports system reviewed and no additional complaints, except as documented Cardiovascular: Cardiovascular: Reports chest pain, Denies rapid heart rate, Reports radiating jaw, neck or arm pain and Denies slow heart rate Respiratory: Respiratory: Reports no additional respiratory complaints Gastrointestinal: Gastrointestinal: Reports no additional gastrointestinal complaints [facility] Past Medical History Medical History (Updated 01/27/24 @ 20:11 by Bridger Horta MD) AAA (abdominal aortic aneurysm) CT of the chest on 04/20/2021 with thoracic aorta 4.4 cm, 3.7 cm, and 4.0 cm, unchanged. Abnormal fasting glucose (10/11/22) fasting glucose 109 on 11/11/2022. Fasting glucose 93 with hemoglobin A1c 5.4 on 11/18/2023. Abrasion foot/toe (11/16/22) great toes and knee after fall At moderate risk for fall (11/16/22) tripped on package on front porch Bilateral hip bursitis BMI 30.0-30.9,adult BMI 31.0-31.9,adult BMI 32.0-32.9,adult BMI 33.0-33.9,adult BPH without obstruction/lower urinary tract symptoms followed by urologist Chronic kidney disease (CKD) stage G3a/A1, moderately decreased glomerular filtration rate (GFR) between 45-59 mL/min/1.73 square meter and albuminuria creatinine ratio less than 30 mg/g BUN 18, creatinine 1.34, GFR 52 on 05/12/2021. BUN 15, creatinine 1.19 with GFR 64 on 04/23/2022. Chronic pain of both knees COVID (01/14/22) Fully vaccinated, tested positive 01/16/2022. Edema of knee Elevated PSA elevated at 21 on 08/28/2014 Encounter for screening for other viral diseases Essential hypertension GERD (gastroesophageal reflux disease) High cholesterol History of diverticulitis HTN (hypertension) Hx of hemorrhoids Increased BMI Mixed hyperlipidemia Total cholesterol 151, triglycerides 130, HDL 41 and LDL 87 on 05/12/2021. Cholesterol 108, HDL 38, triglycerides 105 LDL 45 on 10/14/2022,. cholesterol 111, HDL 35, triglycerides 83, LDL 59 on 11/11/2022. Cholesterol 118, triglycerides 134, HDL 35, LDL 62 with ratio 3.4 on 11/18/2023. Obesity (BMI 30.0-34.9) Polyp
--- NOTE | 2024-01-27 15:48 | ECG_ITS ---
SEE SCANNED COPY FOR CONFIRMED REPORT MTDD
[2024-01-27 16:15] LABS: Troponin I < 0.012 ng/mL (0.000-0.034)
--- NOTE | 2024-01-27 20:12 | PC.NURSE ---
This patient, Adalberto Nichols, was admitted to IMU Room 211-01 at 1907. Patient/family oriented to hospital policies and general routines including ID bracelet, bed and alarms, visiting hours, pain management, procedures, bathroom and other care routines, personal items, smoking policy, room service/diet, and visiting hours. Information on how to activate the Rapid Response Team has been discussed. Patient/Family are encouraged to report perceived risks to care and to ask questions if they do not understand what they are told or what they should do.
[2024-01-27 20:39] LABS: Troponin I < 0.012 ng/mL (0.000-0.034)
--- NOTE | 2024-01-27 21:07 | PM.IMHP ---
H&P: HPI History of Present Illness Date/Time: 01/27/24 21:07 Chief Complaint: chest pain. Narrative: EXAMINATION: CTA chest DATE: 01/27/2024 13:20 INDICATION: Right chest pain. TECHNIQUE: Computed tomographic angiography (CTA) of the chest was performed with 100 mL Omnipaque-350 intravenous contrast. Automated exposure control and iterative reconstruction technique were employed. The dose-length product was 918.47 mGy-cm. Maximum intensity projection 3D-reconstructions of the aorta and other arteries were constructed by the technologist on a separate workstation. COMPARISON: Chest CT 11/04/2023 FINDINGS: The lungs demonstrate mild atelectasis. No pleural effusion. The heart size is normal. There are coronary artery calcifications. No pericardial effusion. There is mild aortic atherosclerosis. There is no significant stenosis of celiac axis, superior mesenteric artery, or the renal arteries. The aorta measures 4.6 cm at the sinuses of Valsalva, 3.8 cm at the sinotubular junction, 4.2 cm in the mid ascending aorta, 2.8 cm at the aortic isthmus, and 3.1 cm in the mid descending aorta. There is severe cervical spondylosis and mild thoracic spondylosis. There is mild chronic height loss of multiple vertebral bodies. IMPRESSION: 1. Aortic ectasia measuring up to 4.6 cm at the sinuses of Valsalva. [facility] Past Medical History Medical History (Updated 01/27/24 @ 22:22 by Fanta Robbins, HUMAN SERVICES PROFESSIONAL) AAA (abdominal aortic aneurysm) CT of the chest on 04/20/2021 with thoracic aorta 4.4 cm, 3.7 cm, and 4.0 cm, unchanged. Abnormal fasting glucose (10/11/22) fasting glucose 109 on 11/11/2022. Fasting glucose 93 with hemoglobin A1c 5.4 on 11/18/2023. Abrasion foot/toe (11/16/22) great toes and knee after fall At moderate risk for fall (11/16/22) tripped on package on front porch Bilateral hip bursitis BMI 30.0-30.9,adult BMI 31.0-31.9,adult BMI 32.0-32.9,adult BMI 33.0-33.9,adult BPH without obstruction/lower urinary tract symptoms followed by urologist Chronic kidney disease (CKD) stage G3a/A1, moderately decreased glomerular filtration rate (GFR) between 45-59 mL/min/1.73 square meter and albuminuria creatinine ratio less than 30 mg/g BUN 18, creatinine 1.34, GFR 52 on 05/12/2021. BUN 15, creatinine 1.19 with GFR 64 on 04/23/2022. Chronic pain of both knees COVID (01/14/22) Fully vaccinated, tested positive 01/16/2022. Edema of knee Elevated PSA elevated at 21 on 08/28/2014 Encounter for screening for other viral diseases Essential hypertension GERD (gastroesophageal reflux disease) High cholesterol History of diverticulitis HTN (hypertension) Hx of hemorrhoids Increased BMI Mixed hyperlipidemia Total cholesterol 151, triglycerides 130, HDL 41 and LDL 87 on 05/12/2021. Cholesterol 108, HDL 38, triglycerides 105 LDL 45 on 10/14/2022,. cholesterol 111, HDL 35, triglycerides 83, LDL 59 on 11/11/2022. Cholesterol 118, triglycerides 134, HDL 35, LDL 62 with ratio 3.4 on 11/18/2023. Obesity (BMI 30.0-34.9) Polyp of colon last colonoscopy 01/25/2018 normal Rhinitis Seasonal allergic rhinitis Sebaceous cyst Thoracic aortic aneurysm 4.4 cm thoracic aortic aneurysm on CT 04/20/2021, 3.7, 4.0 cm on follow-up. CT of the chest on 11/04/2023 with aortic root at 4.2 cm. aorta 4.6 cm at sinuses of Valsalva On 01/27/2024. Thyroid nodule greater than or equal to 1.5 cm in diameter incidentally noted on imaging study (~02/25/12) 1.6 cm nodule left thyroid lobe on CT of the chest on 04/20/2021, increased from 02/25/2012. TSH normal at 2.34 on 05/12/2021. Surgical History Surgical History History of artificial lens replacement History of colonoscopy 11/05/03, 04/23/05, 04/15/10, 06/22/13, 01/25/18, Hx of basal cell carcinoma excision Hx of prostate biopsy S/P trigger finger release Family History Family History (Updated 01/27/24 @ 20:37 by Calista Diaz RN) Sibling Patient's
--- NOTE | 2024-01-27 22:15 | PM.IMHP ---
H&P: HPI History of Present Illness Date/Time: 01/27/24 23:10 Chief Complaint: Chest Pain Narrative: 78 y/o M presents here with chest pain with PMH of AAA, BPH, CKD, HTN, GERD, and HLD. Patient presented here for further evaluation of sudden onset right-sided chest pain. Patient arrived to the ED around 12:30 am reported onset of chest pain 20 minutes prior to arrival. Chest pain occurred while patient was sitting at his desk and not exerting himself. Patient describes the chest pain as burning, felt like a cramp or pulled muscle, tight/crushing, radiating to R rib cage/shoulder/neck/RUE/jaw, constant with a peak, aggravated with exertion, and alleviated by nitro. Initially pain was 10/10, upon arrival he rated the pain at 5-6/10, and post nitroglycerin SL he rated the pain 2/10. Pain currently at a 1-2/10. Patient denies any history of [place] or history of coronary artery disease. Has previously had runs of ectopy 20 years ago, was never formally diagnosed with anything and resolved. Patient has no ascending aortic aneurysm and follows with Cardiology here, seemeeta Mendez MD. Patient endorses previous stress test with most recent stress test 2 years ago, done chemically. No previous cardiac catheterization. Patient does report that he has been taking ibuprofen daily 200 mg in the morning and occasionally 200 mg at night for bursitis of the R hip. Initial VS at presentation: 97.9? F, HR 58, RR 11, 156/80, and 96% on RA. ED workup showed: No leukocytosis, no anemia, no significant electrolyte derangements, creatinine 1.1 and normal GFR, troponin negative x3. Initial EKG showed bradycardia, sinus rhythm, no ST changes, normal QRS, normal QT. Chest CTA showed aortic ataxia measuring up to 4.6 cm at the sinuses of Valsalva. Review of Systems Review of Systems: All systems reviewed & are unremarkable except as noted in HPI and below [facility] Past Medical History Medical History (Updated 01/27/24 @ 22:22 by Fanta Robbins, KEVIN) AAA (abdominal aortic aneurysm) CT of the chest on 04/20/2021 with thoracic aorta 4.4 cm, 3.7 cm, and 4.0 cm, unchanged. Abnormal fasting glucose (10/11/22) fasting glucose 109 on 11/11/2022. Fasting glucose 93 with hemoglobin A1c 5.4 on 11/18/2023. Abrasion foot/toe (11/16/22) great toes and knee after fall At moderate risk for fall (11/16/22) tripped on package on front porch Bilateral hip bursitis BMI 30.0-30.9,adult BMI 31.0-31.9,adult BMI 32.0-32.9,adult BMI 33.0-33.9,adult BPH without obstruction/lower urinary tract symptoms followed by urologist Chronic kidney disease (CKD) stage G3a/A1, moderately decreased glomerular filtration rate (GFR) between 45-59 mL/min/1.73 square meter and albuminuria creatinine ratio less than 30 mg/g BUN 18, creatinine 1.34, GFR 52 on 05/12/2021. BUN 15, creatinine 1.19 with GFR 64 on 04/23/2022. Chronic pain of both knees COVID (01/14/22) Fully vaccinated, tested positive 01/16/2022. Edema of knee Elevated PSA elevated at 21 on 08/28/2014 Encounter for screening for other viral diseases Essential hypertension GERD (gastroesophageal reflux disease) High cholesterol History of diverticulitis HTN (hypertension) Hx of hemorrhoids Increased BMI Mixed hyperlipidemia Total cholesterol 151, triglycerides 130, HDL 41 and LDL 87 on 05/12/2021. Cholesterol 108, HDL 38, triglycerides 105 LDL 45 on 10/14/2022,. cholesterol 111, HDL 35, triglycerides 83, LDL 59 on 11/11/2022. Cholesterol 118, triglycerides 134, HDL 35, LDL 62 with ratio 3.4 on 11/18/2023. Obesity (BMI 30.0-34.9) Polyp of colon last colonoscopy 01/25/2018 normal Rhinitis Seasonal allergic rhinitis Sebaceous cyst Thoracic aortic aneurysm 4.4 cm thoracic aortic aneurysm on CT 04/20/2021, 3.7, 4.0 cm on follow-up. CT of the chest on 11/04/2023 with aortic root at 4.2 cm. aorta 4.6 cm at sinuses of Valsalva On 01/27/2024. Thyroid nodule greater than or equal to 1.5 cm in diameter incidentally noted on my
[2024-01-27] MEDS: FINASTERIDE 5 MG TABLET PO (23:19)
[2024-01-27] MEDS: ROSUVASTATIN 10 MG TABLET 40 MG PO (23:20)
[2024-01-27] MEDS: MIRABEGRON 50 MG ER TABLET PO (23:20)
[2024-01-27] MEDS: LORATADINE 10 MG TABLET PO (23:21)
[2024-01-27] MEDS: METOPROLOL TARTRATE 25 MG TABLET PO (23:21)
[2024-01-27] MEDS: ACETAMINOPHEN 325 MG TABLET 650 MG PO (23:22)
[2024-01-27] MEDS: FLUTICASONE PROPIONATE 0.05% NA SPR 16 GM BTL (*BKC) 1 SPRAY NASAL (23:23)
[2024-01-28] VITALS (12 sets, daily range): BP systolic 122–139; BP diastolic 68–78; PULSE 49–59; RESP 14–18; TEMP 36.4–36.6; O2SAT 96–100
--- NOTE | 2024-01-28 00:58 | ECG_ITS ---
SEE SCANNED COPY FOR CONFIRMED REPORT MTDD
[2024-01-28] MEDS: BELLADONNA ALK/PHENOB ELIX 10 ML, MAG HYDROX/ALUMINUM HYD/SIMETH 30 ML, LIDOCAINE HCL 2... PO ×2 (01:18→10:15)
[2024-01-28] MEDS: WATER FOR IRRIGATION, STERILE 1,000 ML BOTTLE 1000 ML (01:20)
[2024-01-28] MEDS: PANTOPRAZOLE SODIUM IV 40 MG VIAL IV PUSH (02:05)
[2024-01-28 04:40] LABS: Basophils Percent Auto 0.7 % (0.2-1.2); Eosinophils Absolute Auto 0.3 K/mm3 (0-0.3); Eosinophils Percent Auto 4.7 % (0-4.4); Hematocrit 38.1 % (42.0-52.0); Immature Granulocyte Absolute 0.01 K/mm3 (0.00-0.031); Immature Granulocyte Percent A 0.2 % (0-0.5); Lymphocytes Absolute Auto 2.05 K/mm3 (0.9-3.2); Lymphocytes Percent Auto 38.2 % (18.3-44.2); Mean Corpuscular HGB Conc 34.1 g/dl (32-36); Mean Corpuscular Hemoglobin 32.6 pg (26-34); Mean Corpuscular Volume 95.5 fl (80-100); Mean Platelet Volume 9.6 fl (7.4-10.4); Monocytes Absolute Auto 0.5 K/mm3 (0.1-0.6); Neutrophils Absolute Auto 2.5 K/mm3 (1.3-6.7); Neutrophils Percent Auto 47.2 % (45.5-73.1); Platelet Count Result 211 k/mm3 (150-375); Red Blood Count 3.99 M/mm3 (4.6-6.20); Red Cell Distribution Width 12.6 % (11.5-14.5); White Blood Count 5.4 K/mm3 (4.5-10.0)
[2024-01-28 04:51] LABS: Alanine Aminotransferase 22 U/L (6-50); Albumin Level 3.6 g/dL (3.5-5.1); Alkaline Phosphatase 64 U/L (38-126); Anion Gap 3 mmol/L (4-12); Aspartate Amino Transferase 24 U/L (17-59); Bilirubin,Total 0.5 mg/dL (0.2-1.3); Blood Urea Nitrogen 18 mg/dL (9-20); Calcium 8.8 mg/dL (8.4-10.2); Carbon Dioxide 26 mmol/L (22-30); Chloride 107 mmol/L (98-107); Cholesterol 99 mg/dL (0-200); Estimated CRCL calculation 69 ml/min; Estimated Glomerular Filt Rate > 60; Glucose 92 mg/dL (65-110); HDL Direct 28 mg/dL; Potassium 3.9 mmol/L (3.4-5.0); Sodium 136 mmol/L (137-145); Triglycerides 141 mg/dL (<150)
[2024-01-28 05:02] LABS: LDL Cholesterol Direct 57 mg/dL
[2024-01-28 06:08] LABS: Troponin I < 0.012 ng/mL (0.000-0.034)
[2024-01-28] MEDS: PANTOPRAZOLE 40 MG TABLET PO (09:16)
[2024-01-28] MEDS: ASPIRIN 81 MG ENTERIC TABLET PO (09:17)
[2024-01-28] MEDS: METOPROLOL TARTRATE 25 MG TABLET PO (09:17)
[2024-01-28] MEDS: PSYLLIUM POWDER PACKET 1 PACKET PO (09:25)
[2024-01-28] MEDS: FLUTICASONE PROPIONATE 0.05% NA SPR 16 GM BTL (*BKC) 1 SPRAY NASAL (09:25)
[2024-01-28] MEDS: HEPARIN SODIUM 5,000 UNITS/ML VIAL 5000 UNITS SUB-Q (09:25)
--- NOTE | 2024-01-28 11:18 | PM.CNCAR ---
Assessment and Plan Assessment and plan (1) Chest pain: Code(s): R07.9 - Chest pain, unspecified Status: Acute Plan This is a 78-year-old man with a history of a chronic mild ascending aortic aneurysm. He entered the hospital yesterday with some chest pain that was very atypical for myocardial ischemia. Of course he had his aorta scan which showed that pathology to be stable. There was no evidence of aortic dissection. His electrocardiograms are unremarkable and his troponin levels were negative x4 sets. He is currently asymptomatic and not reporting anything that sounds like exertional angina. At this point I believe he can be discharged for follow-up with my partner and his PCP. He does not have to remain in the hospital from my perspective Anthony Fuentes MD [facility] History of Present Illness History of Present Illness Consult date/time: 01/28/24 11:18 Reason For Visit: Chest Pain Narrative: This is a 78-year-old man I am seeing at the request of the hospitalist today because of chest pain. The patient is unknown to me prior to this encounter but he is known at and followed by my partner, Dr. Mendez. He came to the hospital emergency room yesterday because of some chest pain. He was seated at home doing some reading at his desk when he noted the sudden onset of pain in the right lower to lateral aspect of the chest this pain radiated up to the region of the right shoulder and up into the right side of his neck and then down his right arm. The symptoms were moderate to severe in intensity after few minutes he informed his of the symptoms and they made the decision to come to the emergency room for evaluation. He says when he was arriving here the pain was already starting to subside but was still moderate in intensity. He was given 2 nitro lingual tablets and the pain eventually tapered off it had been there altogether he thinks for about 2 and half to 3 hours. E it is not clear based on his history whether the symptoms responded to the nitroglycerin or just gradually subsided on its own. In any event he has not had a recurrence of symptoms through the the evening yesterday, overnight and so far this morning he is visiting with his and feels well at this time. The patient has electrocardiograms were done multiple times with normal results. His troponin levels were checked 4 times and they were normal. He is not known to have coronary artery disease or valvular heart disease. He follows with my partner because of mild aortic root dilation. Because of this he did have a CT of his thoracic aorta yesterday in the emergency department which showed his ascending aorta to be 4.6 cm in diameter. This is consistent with previous results that are in our office record as well. There was no evidence of a dissection. Review of Systems Constitutional: Constitutional: Reports no additional constitutional complaints Eyes: Eyes: Reports no additional eye complaints ENT: Reports system reviewed and no additional complaints, except as documented Cardiovascular: Cardiovascular: Reports as per HPI Respiratory: Respiratory: Reports no additional respiratory complaints Gastrointestinal: Gastrointestinal: Reports no additional gastrointestinal complaints Musculoskeletal: Musculoskeletal: Reports back pain and Reports arthralgias Comments: Patient is having significant problem with lower extremity bursitis Integumentary/Breasts: Skin/Breast: Reports system reviewed and no additional complaints, except as docu Neurologic: Reports system reviewed and no additional complaints, except as documented Endocrine: Endocrine: Reports no additional endocrine complaints Hematologic/Lymphatic: Hematologic/Lymphatic: Reports no additional hematologic/lymphatic complaints Allergic/Immunologic: Allergic/Immunologic: Reports no additional allergic/immunologic complaints [facility] Past Medical History Medical History (Updated
--- NOTE | 2024-01-28 14:20 | PM.DS ---
DS: Admitting Diagnosis Discharge Date 01/28/24 Admitting Diagnosis Chest pain DS: Discharge Diagnosis Discharge Diagnosis (1) Chest pain: Code(s): R07.9 - Chest pain, unspecified Status: Acute (2) AAA (abdominal aortic aneurysm): Code(s): I71.4 - Abdominal aortic aneurysm, without rupture Status: Acute (3) Essential hypertension: Code(s): I10 - Essential (primary) hypertension Status: Acute (4) ORACIO (obstructive sleep apnea): Onset Date: ~2004 Code(s): G47.33 - Obstructive sleep apnea (adult) (pediatric) Status: Acute DS: Summary Hospital Course Reason for hospitalization: 78yo male with AAA, BPH, CKD, HTN and GERD here for chest pain. Please see H&P for details. Hospital Course: EKG on admission showing sinus bradycardia (55) and low voltage. CTA chest showing coronary artery calcifications and aortic ectasia measuring 4.6cm but no dissection and no acute findings. Troponin was <0.012 x 4. ASA 324mg given and started on ASA 81mg daily. Cardiology consulted, TG 141, Chol 99, LDL 57 and HDL 28. Lipase and LFTs normal. Cardiology felt patient's symptoms were not consistent with anginal type pain. He does have acid reflux that is long standing. He still has his GB and denies any abdominal pain. Patietn is comfortable with discharged. He overall did well and was able to be discharged home on 01/28/24. Status at Discharge Cognitive/behavioral status at discharge: stable Time Spent with Patient Time attestation: Total time spent providing and/or coordinating discharge services: 32 minutes Time spent: Greater than 30 minutes Exam Narrative: AF 97.6 128/78 58 14 96% ra Gen - NARD Chest - CTA bilaterally, nml RR CV - RRR S1/S2. Tele showing occasional bradycardia Abd - Soft, NT/ND, Positive BS Ext - No pedal edema Psych - Nml mood and affect Skin - Warm and dry DS: Data Data Completed and Pending Labs on day of discharge: Labs from last 24 hours 01/28/24 01/28/24 01/27/24 03:50 03:48 20:10 WBC 5.4 RBC 3.99 L Hgb 13.0 L Hct 38.1 L MCV 95.5 MCH 32.6 MCHC 34.1 RDW 12.6 Plt Count 211 MPV 9.6 Immature Gran % (Auto) 0.2 Neut % (Auto) 47.2 Lymph % (Auto) 38.2 [place] % (Auto) 9.0 H Eos % (Auto) 4.7 H Baso % (Auto) 0.7 Lymph # (Auto) 2.05 [place] # (Auto) 0.5 Eos # (Auto) 0.3 Baso # (Auto) 0.0 Abs Immat Gran (auto) 0.01 Absolute Neuts (auto) 2.5 Absolute Nucleated RBC 0.000 Nucleated RBC % 0.0 Sodium 136 L Potassium 3.9 Chloride 107 Carbon Dioxide 26 Anion Gap 3 L BUN 18 Creatinine 1.00 Estim Creat Clear Calc 69 Estimated GFR > 60 Glucose 92 Calcium 8.8 Total Bilirubin 0.5 AST 24 ALT 22 Alkaline Phosphatase 64 Troponin I < 0.012 < 0.012 Total Protein 6.0 L Albumin 3.6 Triglycerides 141 Cholesterol 99 LDL Cholesterol Direct 57 HDL Direct 28 01/27/24 15:41 WBC RBC Hgb Hct MCV MCH MCHC RDW Plt Count MPV Immature Gran % (Auto) Neut % (Auto) Lymph % (Auto) [place] % (Auto) Eos % (Auto) Baso % (Auto) Lymph # (Auto) [place] # (Auto) Eos # (Auto) Baso # (Auto) Abs Immat Gran (auto) Absolute Neuts (auto) Absolute Nucleated RBC Nucleated RBC % Sodium Potassium Chloride Carbon Dioxide Anion Gap BUN Creatinine Estim Creat Clear Calc Estimated GFR Glucose Calcium Total Bilirubin AST ALT Alkaline Phosphatase Troponin I < 0.012 Total Protein Albumin Triglycerides Cholesterol LDL Cholesterol Direct HDL Direct Discharge Plan Discharge Attending physician on discharge: Vinod Gage Consulting providers: Anthony Fuentes Discharging Clinician: Vinod Gage Anticipated Discharge Date/Time: 01/28/24 14:39 Patient Disposition: Home, Self-Care Activity: as tolerated Diet: heart health
== END 2024-01-28 15:40 | disposition home or self-care (01) ==
LOC: ANHED 13:12 → ANHIMU 16:38
PROVIDERS: Internal Medicine; Student in an Organized Health Care Education/Training Program; Admitting Provider Internal Medicine; Emergency Provider Emergency Medicine; PCP Family Medicine; Visit Provider Internal Medicine
DX: R07.9 Chest pain, unspecified (principal); I12.9 Hypertensive chronic kidney disease with stage 1 through stage 4 chronic kidney disease, or unspecified chronic kidney disease; N18.31 Chronic kidney disease, stage 3a; E78.00 Pure hypercholesterolemia, unspecified; I71.20 Thoracic aortic aneurysm, without rupture, unspecified; N40.0 Benign prostatic hyperplasia without lower urinary tract symptoms; G47.33 Obstructive sleep apnea (adult) (pediatric)
CPT/HCPCS: 36415; 71275; 80053; 80061; 83690; 84484; 85025; 85610; 85730; 93005; 99285; A9270; C9113; G0378; J1644; Q9967

== ENCOUNTER 2024-02-20 10:05 | Outpatient (CLI) | payer MEDICARE, OTHER, SELFPAY ==
--- NOTE | ~2024-02-20 | US_ITS ---
US right upper quadrant INDICATION: Upper quadrant pain. Chest pain. PROCEDURE: Realtime right upper abdominal ultrasound. COMPARISON: No prior studies for comparison. FINDINGS: The pancreas is normal without focal mass or pancreatic ductal dilation. Liver echotexture is normal without focal mass or intrahepatic biliary dilatation. There is normal directional flow i n the portal vein. The gallbladder is normal without stones, gallbladder wall thickening or pericholecystic fluid. Comm on bile duct measures 3.4 mm. No sonographic Islas's sign. Right renal echotexture is normal withou t hydronephrosis, contour deforming mass or renal calculi. IMPRESSION: 1: Normal limited abdominal ultrasound. Reviewed, dictated and finalized at location B.
== END 2024-02-20 10:06 | disposition home or self-care (01) ==
PROVIDERS: PCP Family Medicine; Visit Provider Family Medicine
DX: R10.11 Right upper quadrant pain (principal)
CPT/HCPCS: 76705

== ENCOUNTER 2024-02-28 10:34 | Outpatient (CLI) | payer MEDICARE, OTHER, SELFPAY ==
--- NOTE | ~2024-02-28 | NM_ITS ---
EXAMINATION: NM hepatobiliary w pharm DATE: 02/28/2024 13:05 CDT INDICATION: Right upper quadrant pain COMPARISON: Ultrasound dated 02/20/2024. TECHNIQUE: 5 mCi Tc-99m mebrofenin (Choletec) was administered intravenously. Scintigraphic images o f the abdomen were obtained for one hour. At the 1 hour time point, 2.3 mcg sincalide (Kinevac) was a dministered by slow intravenous infusion, and imaging was continued for 30 minutes. Gallbladder eject ion fraction was calculated by the technologist.] FINDINGS: There is normal clearance of radiotracer from the blood pool. There is homogeneous tracer u ptake by the liver. Activity progresses to the gallbladder and bowel. Gallbladder ejection fraction is 51%% (normal 10-90%, but most patient with gallbladder dysfunction have GBEF < 35%).] IMPRESSION: 1. Normal hepatobiliary scan. Reviewed, dictated and finalized at location B.
== END 2024-02-28 10:35 | disposition home or self-care (01) ==
PROVIDERS: PCP Family Medicine; Visit Provider Family Medicine
DX: R10.11 Right upper quadrant pain (principal)
CPT/HCPCS: 78227; A9537; J2805

== ENCOUNTER 2024-03-05 11:31 | Emergency (ER) | payer MEDICARE, OTHER, SELFPAY ==
--- NOTE | 2024-03-05 11:37 | ED.SKABFB ---
HPI - Skin/Abscess/Foreign Bdy General Stated complaint: back sore with foul fluid secretion Time Seen by Provider: 03/05/24 11:34 Source: patient Mode of arrival: ambulatory Limitations: no limitations History of Present Illness HPI narrative: Patient is a 78-year-old male who presents with cyst on his back. Patient states he had cyst removed by year ago by Dermatology in roughly the same spot. Reports he noticed it last night when his pointed out. States his squeezed area and had large amounts of pus removed. Patient reports pain and pressure sensations have improved since then. Denies any active drainage from area. Denies any fever, chills, nausea, vomiting, diarrhea. Related Data Home Medications Medication Instructions Recorded Confirmed yetxnzeb-wcg-ecwrl acid 0.4 1 tablet PO DAILY 03/20/20 03/05/24 mg-lycopene 300 mcg-lutein 250 mcg tablet (Centrum Silver) omega 8-qdq-jki-fish oil 1,000 mg 1 cap PO DAILY 03/20/20 03/05/24 (120 mg-180 mg) capsule (Fish Oil) psyllium husk 3.4 gram/5.4 gram 1 tsp PO DAILY 03/20/20 03/05/24 oral powder (Metamucil) finasteride 5 mg tablet 5 mg PO HS 12/18/20 03/05/24 mirabegron 50 mg tablet,extended 50 mg PO HS 12/18/20 03/05/24 release 24 hr (Myrbetriq) rosuvastatin 40 mg tablet (Crestor) 40 mg PO HS 05/27/22 03/05/24 cetirizine 10 mg tablet (Zyrtec) 10 mg PO HS PRN allergy symptoms 01/27/24 03/05/24 fluticasone propionate 50 1 spray intranasal Q12H 01/27/24 03/05/24 mcg/actuation nasal spray,suspension (Flonase Allergy Relief) metoprolol tartrate 25 mg tablet 25 mg PO Q12H 01/27/24 03/05/24 Allergies Allergy/AdvReac Type Severity Reaction Status Date / Time codeine AdvReac Severe VOMITING Verified 03/05/24 11:58 Opioids - Morphine Analogues AdvReac Vomiting Verified 03/05/24 11:58 Review of Systems Review of Systems: All systems reviewed & are unremarkable except as noted in HPI and below Constitutional: Constitutional: Denies body ache(s), Denies chills, Denies fatigue, Denies fever(s), Denies headache(s), Denies malaise and Denies weakness Eyes: Eyes: Denies blurry vision, Denies irritation and Denies loss of vision ENT: Denies otalgia, Denies headache(s), Denies nasal discharge, Denies sinus pain and Denies sore throat Cardiovascular: Cardiovascular: Denies chest pain, Denies irregular heart rhythm and Denies dyspnea Respiratory: Respiratory: Denies dyspnea Gastrointestinal: Gastrointestinal: Denies abdominal pain, Denies melena, Denies hematochezia, Denies diarrhea, Denies nausea and Denies vomiting Musculoskeletal: Musculoskeletal: Denies back pain, Denies myalgias and Denies arthralgias Integumentary/Breasts: Skin/Breast: Denies pruritus, Denies rash and Reports wounds Neurologic: Denies headache(s), Denies loss of vision and Denies weakness Psychiatric: Psychiatric: Reports no additional psychiatric complaints Endocrine: Endocrine: Denies fatigue [facility] Past Medical History Medical History AAA (abdominal aortic aneurysm) CT of the chest on 04/20/2021 with thoracic aorta 4.4 cm, 3.7 cm, and 4.0 cm, unchanged. Abnormal fasting glucose (10/11/22) fasting glucose 109 on 11/11/2022. Fasting glucose 93 with hemoglobin A1c 5.4 on 11/18/2023. Abrasion foot/toe (11/16/22) great toes and knee after fall At moderate risk for fall (11/16/22) tripped on package on front porch Bilateral hip bursitis BMI 30.0-30.9,adult BMI 31.0-31.9,adult BMI 32.0-32.9,adult BMI 33.0-33.9,adult BPH without obstruction/lower urinary tract symptoms followed by urologist Chronic kidney disease (CKD) stage G3a/A1, moderately decreased glomerular filtration rate (GFR) between 45-59 mL/min/1.73 square meter and albuminuria creatinine ratio less than 30 mg/g BUN 18, creatinine 1.34, GFR 52 on 05/12/2021. BUN 15, creatinine 1.19 with GFR 64 on 04/23/2022. Chronic pain of both knees Chronic pain of right h
[2024-03-05 11:38] VITALS: BP 135/82; PULSE 80; RESP 16; TEMP 36.6; O2SAT 97
== END 2024-03-05 12:14 | disposition home or self-care (01) ==
PROVIDERS: Emergency Provider Nurse Practitioner Family; PCP Family Medicine
DX: L72.9 Follicular cyst of the skin and subcutaneous tissue, unspecified (principal); I12.9 Hypertensive chronic kidney disease with stage 1 through stage 4 chronic kidney disease, or unspecified chronic kidney disease; N18.31 Chronic kidney disease, stage 3a; N40.0 Benign prostatic hyperplasia without lower urinary tract symptoms; K21.9 Gastro-esophageal reflux disease without esophagitis; E78.00 Pure hypercholesterolemia, unspecified; E78.2 Mixed hyperlipidemia; E66.9 Obesity, unspecified; Z68.31 Body mass index [BMI] 31.0-31.9, adult; Z86.16 Personal history of COVID-19
CPT/HCPCS: 99213; G0463

== ENCOUNTER 2024-04-05 10:30 | Outpatient (CLI) | payer MEDICARE, OTHER, SELFPAY ==
--- NOTE | ~2024-04-05 | MR_ITS ---
MRI of the right hip Clinical history: Chronic pain Technique: Coronal T1-weighted, T2-weighted, and proton-density fat-sat images, and axial T1-weighted and proton-density fat-sat images were acquired through the pelvis. Coronal T2-weighted images and c oronal, axial, and sagittal proton-density fat-sat images were acquired through the right hip. Findings: There is no fracture or avascular necrosis of either hip. Bone marrow signals the proximal femora and pelvic bones are unremarkable. 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 There is superolateral acetabula r spurring. No significant joint effusion. There is a 1.5 cm focal cystic or fluid collection with surrounding edematous change within the right pectineus muscle belly (axial image 28, coronal image 18-19). Remaining musculature otherwise unrema rkable. Visualized tendons appear intact aside from chronic changes at the hamstring tendon origins. No other muscle atrophy or edema seen. No other soft tissue mass or fluid collection seen. IMPRESSION: 1.5 cm focal cystic mass or fluid collection within the right pectineus muscle belly with surrounding edematous change. Diagnostic considerations could include intramuscular abscess/myositis versus othe r cystic lesions. Para-labral cyst extending from the right acetabular labrum related to degenerati ve labral tearing is probably less likely consideration. Degenerative change of the right hip, as above. Reviewed, dictated and finalized at [facility]. IMPRESSION: 1.5 cm focal cystic mass or fluid collection within the right pectineus muscle belly with surrounding edematous change. Diagnostic considerations could includ e intramuscular abscess/myositis versus other cystic lesions. Para-labral cys t extending from the right acetabular labrum related to degenerative labral tea ring is probably less likely consideration. Degenerative change of the right hip, as above.
== END 2024-04-05 10:31 | disposition home or self-care (01) ==
PROVIDERS: PCP Family Medicine; Visit Provider Orthopaedic Surgery
DX: M16.11 Unilateral primary osteoarthritis, right hip (principal); G89.29 Other chronic pain
CPT/HCPCS: 73721

== ENCOUNTER 2024-04-25 10:50 | Outpatient (CLI) | payer MEDICARE, OTHER, SELFPAY ==
--- NOTE | ~2024-04-25 | CT_ITS ---
EXAMINATION: CT abscess cyst asp w imaging DATE: 04/25/2024 12:12 INDICATION: Cystic mass of the right pectineus muscle. TECHNIQUE: The procedure including the risks, benefits, and alternatives was discussed with the patie nt. Risks discussed included bleeding and infection. The patient verbalized understanding of the risk s and agreed to proceed. The skin overlying the right pelvis was prepped and draped in usual sterile fashion. CT the pelvis was performed with intravenous contrast. Automated exposure control and itera tive reconstruction technique were employed. Anesthetic was administered with 1% lidocaine subcutane ously. An 18-gauge trochar needle was inserted into the cystic mass in right pectineus muscle under C T guidance. No fluid could be aspirated. The dose-length product was 759.48 mGy-cm. The needle was re moved and the entry site was cleaned and dressed. There were no immediate complications. FINDINGS: CT images demonstrate the needle tip in a 3.4 x 1.6 cm peripherally calcified mass with shantell tral low attenuation in the right pectineus muscle. IMPRESSION: 1. 3.4 x 1.6 cm peripherally calcified mass in right pectineus muscle, likely a partial muscle tear w ith development of myositis ossificans. CT-guided needle aspiration yielded no fluid. Reviewed, dictated and finalized at location A. IMPRESSION: 1. 3.4 x 1.6 cm peripherally calcified mass in right pectineus muscle, likely a partial muscle tear with development of myositis ossificans. CT-guided needle aspiration yielded no fluid.
[2024-04-25 11:23] LABS: Estimated Glomerular Filt Rate > 60
== END 2024-04-25 10:51 | disposition home or self-care (01) ==
PROVIDERS: PCP Family Medicine; Visit Provider Orthopaedic Surgery
DX: L02.818 Cutaneous abscess of other sites (principal); M25.551 Pain in right hip; G89.29 Other chronic pain
CPT/HCPCS: 10160; 77012; Q9967

== ENCOUNTER 2024-05-04 12:32 | Emergency (ER) | payer MEDICARE, OTHER, SELFPAY ==
[2024-05-04] VITALS (36 sets, daily range): BP systolic 114–149; BP diastolic 68–104; PULSE 54–70; RESP 11–21; TEMP 36.3–36.7; O2SAT 94–100
--- NOTE | ~2024-05-04 | CT_ITS ---
CTA brain carotid Ordering provider: Holger Winchester PA-C History: . R HOANG, double vision . Comparison: None. Technique: CT angiogram head was performed following timed intravenous injection of contrast. Thin sl ice axial images and reformatted coronal images were obtained. Three dimensional reformatted images o f the brain were also obtained using a [employer] workstation. Radiation reduction technique utilized. D LP is 6 1782.26 mGy-cm. 100 mL Omnipaque 350 was given IV. FINDINGS: --ANTERIOR AND MIDDLE CEREBRAL ARTERIES AND BRANCHES: Normal caliber and contour. --INTERNAL CAROTID ARTERIES: Mild atheromatous disease but no significant stenosis. No occlusion. --BASILAR ARTERY AND BRANCHES: Normal caliber and contour. No atheromatous disease. Prominent left vertebral artery. --POSTERIOR CEREBRAL ARTERIES: Normal caliber and contour --POSTERIOR COMMUNICATING ARTERIES: Not visualized which is probably related to congenital absence or small size. --ANEURYSM: None visualized. --BRAIN: Normal with no evidence of acute intracranial process. Old --BONES AND SUPERFICIAL SOFT TISSUES: Normal. --PARANASAL SINUSES AND MASTOIDS: Minimal bilateral ethmoid sinus disease. Right frontal and left max illary sinus disease. IMPRESSION: No occlusion, stenosis or aneurysm seen. Reviewed, dictated and finalized at location A.
--- NOTE | 2024-05-04 15:18 | ECG_ITS ---
Test Date: 2024-05-04 15:30:18 Measurements Intervals [place] Rate: 56 P: 57 MT: 195 QRS: 13 QRSD: 115 T: 30 QT: 415 QTc: 403 Interpretive Statements SINUS BRADYCARDIA MODERATE INTRAVENTRICULAR CONDUCTION DELAY [110+ ms QRS DURATION] BORDERLINE ECG No previous ECG available for comparison Electronically Signed On 05-05-2024 09:25:06 CDT by Anthony Fuentes M.D.
--- NOTE | 2024-05-04 15:18 | ED.HA ---
HPI - Headache General Chief Complaint: Headache Stated Complaint: HOANG, R eye vision goes out and double vision Time Seen by Provider: 05/04/24 14:54 Source: patient Mode of arrival: ambulatory Limitations: no limitations History of Present Illness HPI Narrative: This is a 78-year-old male with PMH of TAA who presents to the ED for chief complaint of headache, vision changes for the past week. States the symptoms seem to be intermittent. The headache and the blurred vision are located on the right side. states he has had 2 episodes of double vision but otherwise his left eye vision has been normal. States the headache radiates from the right side of the neck into the right side of the head. Reports history of cataracts surgery for vision but has never had problems like this before. States he went to cardiology office this morning for tPA follow-up but they wanted him seen for further evaluation. states that he did have 1 episode of vertigo and has had intermittent right ear ringing as well. Related Data Home Medications Medication Instructions Recorded Confirmed mxttjczy-wzb-bwfos acid 0.4 1 tablet PO DAILY 03/20/20 05/03/24 mg-lycopene 300 mcg-lutein 250 mcg tablet (Centrum Silver) omega 9-cxa-uds-fish oil 1,000 mg 1 cap PO DAILY 03/20/20 05/03/24 (120 mg-180 mg) capsule (Fish Oil) psyllium husk 3.4 gram/5.4 gram 1 tsp PO DAILY 03/20/20 05/03/24 oral powder (Metamucil) finasteride 5 mg tablet 5 mg PO HS 12/18/20 05/03/24 mirabegron 50 mg tablet,extended 50 mg PO HS 12/18/20 05/03/24 release 24 hr (Myrbetriq) rosuvastatin 40 mg tablet (Crestor) 40 mg PO HS 05/27/22 05/03/24 metoprolol tartrate 25 mg tablet 25 mg PO Q12H 01/27/24 05/03/24 Allergies Allergy/AdvReac Type Severity Reaction Status Date / Time codeine AdvReac Severe VOMITING Verified 05/03/24 13:07 Opioids - Morphine Analogues AdvReac Vomiting Verified 05/03/24 13:07 Review of Systems Review of Systems: All systems as dictated in HPI FOR[facility] Past Medical History Medical History AAA (abdominal aortic aneurysm) CT of the chest on 04/20/2021 with thoracic aorta 4.4 cm, 3.7 cm, and 4.0 cm, unchanged. Abnormal fasting glucose (10/11/22) fasting glucose 109 on 11/11/2022. Fasting glucose 93 with hemoglobin A1c 5.4 on 11/18/2023. Abrasion foot/toe (11/16/22) great toes and knee after fall At moderate risk for fall (11/16/22) tripped on package on front porch Bilateral hip bursitis BMI 30.0-30.9,adult BMI 31.0-31.9,adult BMI 32.0-32.9,adult BMI 33.0-33.9,adult BPH without obstruction/lower urinary tract symptoms followed by urologist Chronic kidney disease (CKD) stage G3a/A1, moderately decreased glomerular filtration rate (GFR) between 45-59 mL/min/1.73 square meter and albuminuria creatinine ratio less than 30 mg/g BUN 18, creatinine 1.34, GFR 52 on 05/12/2021. BUN 15, creatinine 1.19 with GFR 64 on 04/23/2022. Chronic pain of both knees Chronic pain of right hip COVID (01/14/22) Fully vaccinated, tested positive 01/16/2022. Edema of knee Elevated PSA elevated at 21 on 08/28/2014 Encounter for screening for other viral diseases Essential hypertension GERD (gastroesophageal reflux disease) High cholesterol History of diverticulitis HTN (hypertension) Hx of hemorrhoids Increased BMI Mixed hyperlipidemia Total cholesterol 151, triglycerides 130, HDL 41 and LDL 87 on 05/12/2021. Cholesterol 108, HDL 38, triglycerides 105 LDL 45 on 10/14/2022,. cholesterol 111, HDL 35, triglycerides 83, LDL 59 on 11/11/2022. Cholesterol 118, triglycerides 134, HDL 35, LDL 62 with ratio 3.4 on 11/18/2023. Cholesterol 199, triglycerides 141, HDL 28, LDL 57 on 01/27/2024. Obesity (BMI 30.0-34.9) Polyp of colon last colonoscopy 01/25/2018 normal Rhinitis Right upper quadrant abdominal pain (01/27/24) Normal ultrasound gallbladder 02/20/2024. Seasonal allergic rhinitis Sebaceous cyst Thoracic
[2024-05-04 16:06] LABS: Basophils Absolute Auto 0.1 K/mm3 (0.0-0.1); Eosinophils Absolute Auto 0.2 K/mm3 (0-0.3); Eosinophils Percent Auto 4.9 % (0-4.4); Hematocrit 38.1 % (42.0-52.0); Hemoglobin 12.9 g/dL (14.0-18.0); Immature Granulocyte Absolute 0.01 K/mm3 (0.00-0.031); Immature Granulocyte Percent A 0.2 % (0-0.5); Lymphocytes Absolute Auto 1.74 K/mm3 (0.9-3.2); Lymphocytes Percent Auto 35.3 % (18.3-44.2); Mean Corpuscular HGB Conc 33.9 g/dl (32-36); Mean Corpuscular Hemoglobin 32.4 pg (26-34); Mean Corpuscular Volume 95.7 fl (80-100); Mean Platelet Volume 9.2 fl (7.4-10.4); Monocytes Absolute Auto 0.5 K/mm3 (0.1-0.6); Monocytes Percent Auto 9.3 % (2.6-8.5); Neutrophils Absolute Auto 2.4 K/mm3 (1.3-6.7); Neutrophils Percent Auto 49.3 % (45.5-73.1); Platelet Count Result 229 k/mm3 (150-375); Red Blood Count 3.98 M/mm3 (4.6-6.20); Red Cell Distribution Width 12.7 % (11.5-14.5); White Blood Count 4.9 K/mm3 (4.5-10.0)
[2024-05-04 16:17] LABS: Prothrombin Time 13.2 Seconds (11.1-14.7)
[2024-05-04 16:18] LABS: Partial Thromboplastin Time 31.4 Seconds (22.3-36.8)
[2024-05-04 16:37] LABS: Alanine Aminotransferase 17 U/L (6-50); Albumin Level 3.6 g/dL (3.5-5.1); Alkaline Phosphatase 83 U/L (38-126); Anion Gap 7 mmol/L (4-12); Aspartate Amino Transferase 28 U/L (17-59); Bilirubin,Total 0.5 mg/dL (0.2-1.3); Blood Urea Nitrogen 14 mg/dL (9-20); Calcium 8.8 mg/dL (8.4-10.2); Carbon Dioxide 28 mmol/L (22-30); Chloride 104 mmol/L (98-107); Estimated CRCL calculation 69 ml/min; Estimated Glomerular Filt Rate > 60; Glucose 94 mg/dL (65-110); Potassium 4.1 mmol/L (3.4-5.0); Sodium 139 mmol/L (137-145)
[2024-05-04 16:58] LABS: Add Urine Microscopic? NO; Appearance Urine Clear (Clear); Bilirubin Urine Negative (Negative); Blood Urine Negative (Negative); Color Urine Yellow (Yellow); Glucose Urine UA Negative (Negative); Ketones Urine Negative (Negative); Leukocyte Esterase Ur Negative LEU/UL (Negative); Nitrate Urine Negative (Negative); Protein Urine Negative (Negative); Specific Grav Ur 1.007 (1.001-1.035); Urobilinogen Urine 0.2 mg/dL (<2.0); pH Urine 7.5 (5.0-9.0)
[2024-05-04] MEDS: ACETAMINOPHEN 325 MG TABLET 650 MG PO (18:03)
--- NOTE | 2024-05-04 20:00 | PC.NURSE ---
This RN spoke with Tess from [facility] xfr center to answer triage questions. Pt was accepted at [facility] and expected to have bed placement this evening.
--- NOTE | 2024-05-04 21:38 | PC.NURSE ---
Transfer center called with a bed assignment at [facility] bed 218-2. Report to be called at [phone] or [phone]. Accepting physician Dr. Figueredo.
== END 2024-05-04 22:38 | disposition short-term general hospital (02) ==
LOC: ANHED 15:00
PROVIDERS: Emergency Provider Physician Assistant; PCP Family Medicine
DX: H53.8 Other visual disturbances (principal); I12.9 Hypertensive chronic kidney disease with stage 1 through stage 4 chronic kidney disease, or unspecified chronic kidney disease; N18.31 Chronic kidney disease, stage 3a; I71.20 Thoracic aortic aneurysm, without rupture, unspecified; N40.0 Benign prostatic hyperplasia without lower urinary tract symptoms; E78.2 Mixed hyperlipidemia; K21.9 Gastro-esophageal reflux disease without esophagitis; E66.9 Obesity, unspecified; Z68.31 Body mass index [BMI] 31.0-31.9, adult; Z86.16 Personal history of COVID-19; Z86.010 Personal history of colon polyps; Z85.828 Personal history of other malignant neoplasm of skin; Z96.1 Presence of intraocular lens; Z98.49 Cataract extraction status, unspecified eye; Z77.22 Contact with and (suspected) exposure to environmental tobacco smoke (acute) (chronic); Z79.82 Long term (current) use of aspirin; Z79.899 Other long term (current) drug therapy; R00.1 Bradycardia, unspecified; I45.9 Conduction disorder, unspecified
CPT/HCPCS: 36415; 70496; 70498; 80053; 81003; 85025; 85610; 85730; 93005; 99285; A9270; Q9967

== ENCOUNTER 2025-01-17 10:46 | Outpatient (CLI) | payer MEDICARE, OTHER, SELFPAY ==
--- NOTE | ~2025-01-17 | CT_ITS ---
CT Scan of the Chest without Contrast: Clinical Indication: Aortic root aneurysm Technique: Contiguous sections were acquired throughout the chest without intravenous contrast. Dose reduction technique was used on this scan by utilizing automated exposure control and iterative recon struction technique. The dose-length product (DLP) was 644.78 mGy-cm. COMPARISON: 01/27/2024 Findings: There is no evidence of any significant mediastinal, hilar or axillary lymphadenopathy. Ascending aor ta measures 4.2 cm in maximal diameter. Coronary artery calcifications are present. There is no evidence of pleural or pericardial effusion. The lungs are clear. No pulmonary nodules or infiltrates are noted. Images through the upper abdomen reveal no abnormalities. Impression: Ascending aorta measures up to 4.2 cm as measured on the current exam. Reviewed, dictated and finalized at [facility]. Impression: Ascending aorta measures up to 4.2 cm as measured on the current exam.
--- OUTSIDE RECORDS SUMMARY | 2025-01-17 11:43 | XMS_ITS | Data Portability ---
Author Organization [place] [facility] [place] [employer], Main Office Address [address] [place] [address] Care Team Providers Care Pharmacy Intake Technician Name Role Phone CHRISTINA HARRIS Primary Care Provider [phone] CHRISTINA HARRIS Referring Provider [phone] Assessment Encounter Date Assessment Date Assessment LastModified by Organization Details LastModified Time 07/01/2023 07/01/2023 HPI: 77-year-old male came in today for evaluation his right lateral hip pain. He has been having symptoms on off for years. His chief complaint is that he has difficulty sleeping at night particularly on the right side. If he lays on the right side he can only do this for short minute time the knee has to get off of it. At times the right lateral hip will get so severe that even a light sheet touching the skin is uncomfortable. He does take 2 Tylenol every night, 500 mg, and this does help him sleep because the night. He has mild symptoms during the day. He does have steps in the house and goes up and down the steps at least 8 times a day for general health. He has been taking no anti-inflammato sravanthi. Physical exam: 77-year-old male alert pleasant. He is 5 ft 11 237 lb BMI is 33.1. His right hip flexes to 130 externally rotates to 40 internally rotates to 20 without discomfort. He has negative Stinchfield maneuver. He has moderate tenderness over trochanteric bursa to palpation. He has normal strength with abductor testing lateral position. he is not complaining of buttock pain and no new radicular symptoms in the right leg. There is no edema in either lower extremity. No numbness or tingling lower extremity. He complains of back pain. After ChloraPrep used on the skin 20 mg Kenalog and 3 cc of 0.5% ropivacaine was injected Into the areas of maximal tenderness. Impression: 77-year-old male has chronic trochanteric bursitis. He has been having the symptoms for years. He Is wanting to get some relief of his symptoms. I recommended mended a course of formal physical therapy for hip bursitis protocol. We talked about the use of cortisone injection, patient has had these in his knees before he had his knees replaced years ago and would like to have this done today. He is getting tired of dealing with this pain as wanting some relief. He does have good strength with abductor testing so I think 1 injection is reasonable at this point. He tolerated the injection well. We will set up therapy for him we will see him back in a month for re-evaluation is doing very well he can call and cancel. 30 minutes was spent treatment patient more than half of this tode-cd-ssxr conversation stephan Not available 07/01/2023 11:55:33 Plan of Treatment Reminders Order Date Submit Date Provider Last Modified By Organization Details Last Modified Time Details Appointments None recorded. Lab None recorded. Referral None recorded. Procedures injection/a spiration joint/bursa (PROC) - in office procedure, administere d by provider 2022 [email or web address] In-Office Order, Internal Use Only DO Not Attach Compendium DO Not Attach Compendium, Do Not Delete/merge, [id number] 11:45:37 Surgeries None recorded. Imaging [facility], hip + pelvis, [facility] [place], [address], [place], [address], 14:11:44 Medication Orders Kenalog 10 mg/mL suspension for injection [id number], [address], [place], [place], [phone], 3 14:11:44 ropivacaine (PF) 5 mg/mL (0.5 %) injection solution [address] [id number], [address], [place], [place], [phone], 3 14:11:44 Patient TargetsNo targets recorded. Patient InstructionsNo instructions recorded. Reason for Referral None Reported. Results Created Date Observation Date Name Description Value Unit Range Abnormal Flag Note LastModifiedBy Organization Detail LastModifiedTime 07/01/20 23 XR, hip + pelvi s, unila teral No observ ation record ed. [email or web address] [facility] [place] [address], [place], [address], 07/01/2023 11:51:58 Result Notes None recorded. Problems Name Problem SNOMED Code Status Onset Date Resolution Date Notes Provider Name and Address Organization Details Recorded Time Benign essential hypertensi on 7696761 Active Not Available [facility] 3 15:54:49 Gastroesop hageal reflux disease 843294098 Active Not Available [facility] 3 15:54:49 Benign prostatic hyperplasi a 796345551 Active Not Available [facility] 3 15:54:49 Osteoarthr itis 497775550 Active Not Available [facility] 3 15:54:49 Obesity 456311467 Active Not Available [facility] 3 15:54:49 Aneurysm of thoracic aorta 995400927 Active Not Available [facility] 3 15:54:49 Hyperlipid emia 27144865 Active Not Available [facility] 3 15:54:50 Allergic rhinitis 09421915 Active Not Available [facility] 3 15:54:50 Hypersomni a 44426910 Active Not Available [facility] 3 15:54:50 Obstructiv e sleep apnea syndrome 57217068 Active Not Available [facility] 3 15:54:50 Pain of right hip joint 0930475078329 02 Active 2022 NANCY Trevizo, [place] [facility] 3 11:21:48 Problem Notes None recorded. Procedures Surgical History Date Name Laterality Status Provider Name and Address Organization Details Recorded Time Total knee arthroplasty completed NANCY Trevizo [place] - [facility] 07/01/2023 11:20:15 Colonoscopy completed NANCY Trevizo [facility] 07/01/2023 11:20:31 Imaging Results Imaging Date Name Status LastModified by Organiz ation Details LastModified Time 07/01/2023 XR, hip + pelvis, unilateral completed [email or web address] [facility] [place] [address], [place], [address], 07/01/2023 11:51:58 Procedure Notes None recorded. Medical Equipment None Reported. Allergies No known drug allergies Medications Name Sig Start Date Stop Date Status Note LastModified by Organization Details LastModified Time cetirizine 10 mg tablet TAKE 1 TABLET BY MOUTH ONCE DAILY NEEDED FOR ALLERGY SYMPTOMS active Not Available Not Available No t Available metoprolol succinate ER 50 mg tablet,ext ended release 24 hr Take 1 tablet every day by oral route. 2012 active Not Available Not Available Not Avai lable Nexium 40 mg capsule,de layed release Take 1 capsule every day by oral route. 2012 active Not Available Not Available Not Avai lable aspirin 81 mg tablet,del ayed release TAKE 1 TABLET BY MOUTH DAILY active Not Available Not Available No t Available simvastati n 40 mg tablet Take 1 tablet every day by oral route. 2012 active Not Available Not Available Not Avai lable Kenalog 10 mg/mL suspension for injection in office 2022 active ND: [id number] Not Available Not Available Not Available amitriptyl ine 10 mg tablet Take 1 tablet every day by oral route. 2013 active Not Available Not Available Not Avai lable cephalexin 500 mg capsule TAKE 1 CAPSULE BY MOUTH EVERY 8 HOURS FOR 10 DAYS 07/01 completed Not Available Not Available Not Available pantoprazo le 40 mg tablet,del ayed release TAKE 1 TABLET BY MOUTH DAILY active Not Available Not Available No t Available ketoconazo le 2 % topical cream active Not Available Not Available Not Available fluticason e propionate 50 mcg/actuat ion nasal spray,susp ension SHAKE LIQUID AND USE 1 SPRAY IN EACH NOSTRIL TWICE DAILY active Not Available Not Available No t Available finasterid e 5 mg tablet TAKE 1 TABLET BY MOUTH DAILY active Not Available Not Available No t Available rosuvastat in 40 mg tablet active Not Available Not Available Not Available Uroxatral 10 mg tablet,ext ended release Take 1 tablet every day by oral route. 2012 active Not Available Not Available Not Avai lable metoprolol tartrate 25 mg tablet TAKE 1 TABLET BY MOUTH TWICE DAILY active Not Available Not Available No t Available aspirin 81 mg daily 2012 active Not Available Not Available Not Avai lable nystatin powder for rash 2012 active as needed Not Available Not Available Not Available Metamucil daily 2012 active Not Available Not Available Not Avai lable diphenhydr amine (bulk) 2013 active NEEDED FOR SLEEP Not Available Not Available Not Available ropivacain e (PF) 5 mg/mL (0.5 %) injection solution in office 2022 active [facility] 36072-6 64-01 Not Available Not Available Not Available Myrbetriq 50 mg tablet,ext ended release Take 1 tablet every day by oral route. active Not Available Not Available No t Available Fluvirin 45 mcg (15 mcg x 3)/0.5 mL intramuscu lar suspension ADM 0.5ML UTD active Not Available Not Available No t Available Vitals Date Recorded Body height Body mass index (BMI) Body weight Provider Name and Address Organization Details Last Updated DateTime 07/01/2023 180.34 cm 33.1 kg/m2 901703.39 g NANCY Trevizo [facility] [employer] 07/01/2023 11:26:27 Social History Question Answer Notes LastModified by Organizat ion Details LastModified Time Tobacco Smoking Status Never Smoker NANCY Trevizo [facility], [facility] [employer] 07/01/2023 11:19:44 What Is Your Level Of Alcohol Consumption? Occasional [email or web address] Information not available 07/01/2023 What Is Your Occupation? Retired [id number] Information not available 11/17/2022 Sex: Unknown Functional Status None recorded. Mental Status None recorded. Family History Relationship Description Onset Age of this Age Resolved Age Notes LastModified by Organization Details LastModified Time Mother Family history of malignant neoplasm [email or web address] Not available 2022 11:19:29 Medical History No medical history recorded. Immunizations Vaccine Type Date Status Note Provider Nam e and Address Organization Details Recorded Time Influenza, split virus, quadrivalent, PF 06/19/2013 completed Not Available [employer] 15:55:47 Past Encounters Encounter ID Performer Location Encounter Start Date Encounter Closed Date Diagnosis/Indication Diagnosis SNOMED-CT Code Diagnosis ICD10 Code Diagnosis Note [id number] Zev Robles MD [facility] [place] [address] [place] [address] 07/01/2023 10:50:16 07/01/2023 12:02:32 Pain of right hip joint 6576217075 17931 M25.551 Health Concerns Section Related Observation LastModified by Organization Detai ls LastModified Time None Recorded Concern Status LastModified by Organization Details LastModified Time None Recorded Advance Directives Directive None Recorded Payers Encounter Date Sequence Insurance Name Policy Number Policy Juarez Covered Member ID Juarez Member ID Guarantor Name 07/01/2023 1 [place] Adalberto Nichols [id number] Adalberto Nichols 07/01/2023 2 [employer] - FOR LIFE (MEDICARE SUPPLEMENT) Adalberto Nichols [id number] Adalberto Nichols
--- OUTSIDE RECORDS SUMMARY | 2025-01-17 11:44 | XMS_ITS | Clinical Summary ---
Author Organization [facility] Address [facility] [place] [address] Care Team Providers Care Animal Park Code Enforcement Officer Name Role Phone Unavailable Primary Care Provider Unavailabl e Social History Tobacco Use Types Packs/Day Years Used Date Smoking Tobacco: Never Assessed Sex and Gender Information Value Date Recorded Sex Assigned at Not on file Legal Sex Male 5:42 PM CDT Gender Identity Not on file Sexual Orientation Not on file Plan of Treatment Health Maintenance Due Date Last Done Comments Hepatitis C 1963 DTaP, Tdap and Td Vaccines ( 1 - Tdap) 1965 Pneumococcal Vaccine: 50+ Ye ars (1 of 1 - PCV) 1996 Zoster Vaccines (1 of 2) 1996 RSV Immunization or 60+ Years (1 - 1-dose 75+ series) 2021 COVID-19 Vaccine ( - 2023-2 5 season) 2024 Meningococcal B Vaccine Aged Out No l onger eligible based on patient's age to complete this topic Meningococcal Vaccine Aged Out No margarito leela eligible based on patient's age to complete this topic RSV Immunizations Under 20 Months Aged Out No longer eligible based on patient's age to complete this topic
--- OUTSIDE RECORDS SUMMARY | 2025-01-17 11:44 | XMS_ITS | Clinical Summary ---
Author Organization [facility] [address] Address [address] [place] [address] Care Team Providers Care Signaling Project Engineer Name Role Phone Alcides Orozco MD Primary Care Provider [phone] Allergies Active Allergy Reactions Criticality Noted Date Comments Codeine Nausea & Vomiting Low Opioids - Morphine Analogues Vomiting Low 021 Medications fluticasone (FLONASE) 50 mcg/actuation nasal spray inhale 2 spray by Intranasal route every day in each nostril 0 2 Active Additional Information Patient taking differently: 1 spray each nostril 2 times daily, Indications: Allergic Rhinitis, Reported on 04/08/2022 aspirin (ASPIRIN LOW-STRENGTH) 81 mg chewable tablet chew 1 tablet (81MG) by oral route every day 0 2 Active Additional Information Patient taking differently:81 mgoral Every morning, Indications: primary prevention of coronary heart disease, Informant: Self, Reported on 04/21/2023 psyllium seed, sugar, (METAMUCIL, SUGAR,) powder 0 2 Active Additional Information Patient taking differently: 1 Dose oral Every morning, Indications: constipation, Reported on 04/08/[address] (PROTONIX) 40 mg EC tabletIndications :Treatment of Non-Bleeding Gastric Disorder Take 1 tablet (40 mg total) by mouth every morning Active fish oil-dha-epa 1,200-144-216 mg capsule Take 1 Dose by mouth every morning Active cetirizine (ZyrTEC) 10 mg tabletIndications :Allergic Rhinitis Take 1 tablet (10 mg total) by mouth nightly Active finasteride (PROSCAR) 5 mg tabletIndications :benign prostatic hyperplasia with lower urinary tract sx Take 1 tablet (5 mg total) by mouth nightly Active ncwwnwpr-imz-WT-l ycopen-lutein 0.4-300-250 mg-mcg-mcg tabletIndications :Vitamin Deficiency Prevention Take 1 tablet by mouth every morning Active mirabegron ER (MYRBETRIQ) 50 mg tablet extended release 24 hrIndications:Uri nary Urgency Take 1 tablet (50 mg total) by mouth nightly Active rosuvastatin (CRESTOR) 40 mg tabletIndications :Aortic root dilatation,Hyperl ipidemia with target LDL less than 70,Coronary artery calcification seen on CT scan TAKE 1 TABLET(40 MG) BY MOUTH DAILY 90 tablet 3 Active metoprolol tartrate (LOPRESSOR) 25 mg immediate release tablet Take 1 tablet (25 mg total) by mouth 2 (two) times a day Active Active Problems Problem Noted Date Diagnosed Date Headache 05/05/2024 Vision changes 05/05/2024 Stroke-like symptoms 05/05/2024 Migraine without status migrainosus, not intract able 05/05/2024 Diplopia 05/04/2024 Blurry vision 05/04/2024 Bilateral carotid bruits 05/04/2024 Trigger finger of right hand 10/07/2020 Overview (10/07/2020): Added automatically from request for surgery [id number] Coronary artery calcification seen on CT scan Trigger ring finger of right hand 11/28/2019 Overview (11/28/2019): Added automatically from request for surgery [id number] Knee pain 08/03/2016 Aortic root dilatation 06/16/2016 Overview (12/23/2016): Aortic root dilatation ORACIO on CPAP 06/16/2016 Overview (12/23/2016): Obstructive sleep apnea Essential hypertension 06/16/2016 Overview (12/25/2016): Essential hypertension Hyperlipidemia with target LDL less than 70 05/21 Overview (12/25/2016): Hyperlipidemia LDL goal <70 Orthostasis 06/16/2016 Overview (12/25/2016): Orthostasis Premature atrial contraction 06/16/2016 Overview (12/25/2016): PAC (premature atrial contraction) Pulmonary HTN 06/16/2016 Overview (12/25/2016): Pulmonary hypertension Impotence of organic origin 09/30/2014 Dyslipidemia 02/02/2014 Overview (12/22/2016): Dyslipidemia Hypertension 02/02/2014 Overview (12/23/2016): Hypertension Acquired trigger finger 01/07/2009 Elevated prostate specific antigen (PSA) 008 Overview (12/29/2017): Description: last PSA = 21.0 on 08/28/2014 Surgical History Surgery Date Site/Laterality Comments HAND SURGERY trigger finger release on all 10 fingers (12 surgeries) CATARACT EXTRACTION 07/28/2017 Left CATARACT EXTRACTION 01/23/2013 Right BASAL CELL CARCINOMA EXCISION x5 CYST REMOVAL Left left hand index figner COLONOSCOPY 01/25/2018 BUNIONECTOMY Right VASECTOMY 09/19/1978 - 09/18/1979 TRIGGER FINGER RELEASE 2013; 02/06/2020 Bilateral BUNIONECTOMY Left MOHS SURGERY 09/19/2016 - 09/18/2017 JOINT REPLACEMENT Right Knee Replaceme nt 01/13/2021 Medical History Medical History Date Comments Gastric reflux Sleep apnea Cancer (HCC) skin cancer Aneurysm of aorta 03/2008 Hypertension Hyperlipidemia GERD (gastroesophageal reflux disease) 20 years ago Cataract corrected with lenses implants Motion sickness Right trigger finger Pulmonary HTN (HCC) mild Obesity Aortic root dilatation PAC (premature atrial contraction) Family History Medical History Relation Name Comments Heart attack Maternal Grandfather Cancer Mother Jayda Nichols, age 9 2 Heart attack Paternal Grandfather Heart attack Sister Anesthesia problems Neg Hx Relation Name Status Comments Maternal Grandfather Mother Jayda Nichols, age 92 Paternal Grandfather Sister Social History Tobacco Use Types Packs/Day Years Used Date Smoking Tobacco: Never Smokeless Tobacco: Never Tobacco Cessation:Counseling Given: Not Answered Alcohol Use Standard Drinks/Week Comments Yes 3 (1 standard drink = 0.6 oz pur e alcohol) AUDIT-C Answer Date Recorded Q1: How often do you have a drink containing alc ohol? Monthly or less 05/05/2024 Q2: How many drinks containi ng alcohol do you have on a typical day when you are drinking? 1 or 2 05/05/2024 Q3: How often do you have si x or more drinks on one occasion? Never 05/05/2024 Personal Safety Answer Date Recorded Have you ever been in or are you currently in a harmful physical or emotional relationship or is someone making you feel afraid or unsafe? 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 Gender Identity Male 03/17/2021 11:02 AM CDT Sexual Orientation Straight 11/27/2019 6 :59 PM CDT Occupation Industry Job Start Date Job End Date [employer] Not on file Not on file Not on tacos e Obstetrics History Last Filed Vital Signs Vital Sign Reading Time Taken Comments Blood Pressure 106/68 07/03/2024 1:00 PM CDT Pulse 61 07/03/2024 1:00 PM CDT Temperature 36.6 C (97.9 F) 05/06/2024 7:36 AM CDT Respiratory Rate 18 05/06/2024 11:06 AM CDT Oxygen Saturation 98% 07/03/2024 1:00 PM CDT Inhaled Oxygen Concentration - - Weight 110.2 kg (243 lb) 07/03/2024 1:00 PM CDT Height 182.9 cm (6') 07/03/2024 1:00 PM CDT Body Mass Index 32.96 07/03/2024 1:00 PM CDT Plan of Treatment Health Maintenance Due Date Last Done Comments Depression Screening 1945 Hepatitis C Screening 1945 Well Visit 65+ 2011 DTaP/Tdap/Td Vaccine (2 - Td or Tdap) 10/09/2019 10/09/2009 Influenza Vaccine (#1) 2024 9, 05/25/2018, 05/25/2018, Additional history exists Fall Risk Assessment 05/06/2025 05/06/2024 Pneumococcal vaccine 65+ Completed 07/04/2014, 10/20 Hepatitis B Screening Completed 02/12/2016 , 09/08/2015, 08/04/2015 Zoster Vaccine Completed 11/03/2018, 02/2018, 05/24/2018, Additional history exists Insurance MEDICARE FOR C[employer] MEDICARE FOR LIFE MEDICARE FOR LIFE Advance Directives For more information, please contact: [phone] * Full Code (Latest Code Status on File) Date Activated Date Inactivated Comments 05/05/2024 1:07 AM 05/06/2024 7:28 PM Care Teams Signaling Project Engineer Relationship Specialty Start Date End Date Alcides Orozco MD [address] [address] PCP - General Family Medicine 03/24/21
--- OUTSIDE RECORDS SUMMARY | 2025-01-17 11:44 | XMS_ITS | Continuity of Care Document ---
Author Organization [facility] Address [address] [place] [address] Phone Care Team Providers Care Immigration Services Officer Name Role Phone Naomie Young Unavailable Unavailable Advance Directives Directive Yes / No Effective Date File Name No Information Encounters Encounter Description Practice Location Reason(s) For Visit Diagnoses Date Provider Providers Copied on Encounter [facility], [address], [place], [place], [id number], [place] tel:[phone] [facility] No Information Dec-0 3-200 4 Hannah Akbar. [address] , [address], [place], [address], [place]. tel:[phone] Family History Family Member Type Diagnosis Age At Onset No Information Payers Payer name Insurance type Covered libertarian ID Authoriza tion(s) No Information Social History Type Description Quantity Date Captured Comments Sex Male Smoking Status No Information Chief Complaint And Reason For Visit No Information Reason For Referral Reason For Referral No Information History Of Present Illness Encounter Date Complaint History Of Prese nt Illness No Information Functional Status Date Functional Assessmen t No Information Instructions Date Instruction Additional Infor mation No Information Assessments Type Assessment Date No Information Patient Care Teams Name Effective Dates (start - stop) Status Members No Information
--- OUTSIDE RECORDS SUMMARY | 2025-01-17 11:44 | XMS_ITS | Clinical Summary ---
Author Organization [facility] Michaelkelly [place]oyola Address [address] [address] Care Team Providers Care Advertising Sales Manager Name Role Phone Unavailable Primary Care Provider Unavailabl e Medications No known medications Active Problems No known active problems Encounters Date Type Department Care Team Description 12/05/2024 External Device Data [facility] ABSTRACTION Provider, Abstract 11/24/2024 External Device Data [facility]STRACTION Provider, Abstract 11/23/2024 External Device Data [facility]STRACTION Provider, Abstract 11/07/2024 External Device Data [facility]STRACTION Provider, Abstract from Last 3 Months Social History Tobacco Use Types Packs/Day Years Used Date Smoking Tobacco: Never Assessed Sex and Gender Information Value Date Recorded Sex Assigned at Not on file Legal Sex Male 8:48 AM CDT Gender Identity Not on file Sexual Orientation Not on file Last Filed Vital Signs Vital Sign Reading Time Taken Comments Blood Pressure 129/75 07/18/2024 8:59 AM CDT Pulse 67 07/18/2024 8:59 AM CDT Temperature 36.6 C (97.8 F) 07/18/2024 8:59 AM CDT Respiratory Rate 20 07/18/2024 8:59 AM CDT Oxygen Saturation 96% 07/18/2024 8:59 AM CDT Inhaled Oxygen Concentration - - Weight 108.9 kg (240 lb) 07/18/2024 8:59 AM CDT Height 182.9 cm (6') 07/18/2024 8:59 AM CDT Body Mass Index 32.55 07/18/2024 8:59 AM CDT Plan of Treatment Health Maintenance Due Date Last Done Comments DTAP/TDAP/TD VACCINES (2 - T d or Tdap) 10/09/2019 10/09/2009 RSV VACCINE (60+ or ) (1 - 1-dose 75+ series) 2021 INFLUENZA VACCINE (#1) 2024 8, 05/25/2018, 07/22/2015, Additional history exists PNEUMOCOCCAL VACCINE 50+ YEARS Completed 07/04/2014 , 11/01/2011 ZOSTER VACCINE Completed 11/03/2018, 02/2018, 10/09/2009 Insurance MEDICARE PART A AND B
--- OUTSIDE RECORDS SUMMARY | 2025-01-17 11:44 | XMS_ITS | Referral Summary ---
Author Organization [facility] [address] Address [address] [place] [address] Care Team Providers Care Construction Superintendent Name Role Phone Alcides Orozco MD Primary Care Provider [phone] Allergies Active Allergy Reactions Criticality Noted Date [...] (5 mg total) by mouth nightly Active zrohrism-kgd-MP-l ycopen-lutein 0.4-300-250 mg-mcg-mcg tabletIndications :Vitamin Deficiency Prevention [...] (10/07/2020): Added automatically from request for surgery [id number] Coronary artery calcification seen on CT scan Trigger ring finger of right hand 11/28/2019 Overview (11/28/2019): Added automatically from request for surgery [id number] Knee pain 08/03/2016 Aortic root dilatation 06/16/2016 [...] Description: last PSA = 21.0 on 08/28/2014 Social History Tobacco Use Types Packs/Day Years [...] on file 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 Gender Identity Male 03/17/2021 11:02 AM CDT Sexual Orientation Straight 11/27/2019 6: 59 PM CDT Occupation Industry Job Start Date Job End Date [employer] Not on file Not on file Not on tacos e Last Filed Vital Signs Vital Sign Reading [...] 07/03/2024 1:00 PM CDT Plan of Treatment Not on file Insurance MEDICARE FOR LIFE MEDICARE [facility] FOR LIFE MEDICARE FOR LIFE Advance Directives For more information, please contact: [phone] * Full Code (Latest Code Status on File) Date Activated Date Inactivated Comments 05/05/2024 1:07 AM 05/06/2024 7:28 PM Care Teams Construction Superintendent Relationship Specialty Start Date End Date Alcides Orozco MD [address] [place] [id number] PCP - General Family Medicine 03/24/21
== END 2025-01-17 10:47 | disposition home or self-care (01) ==
PROVIDERS: PCP Family Medicine; Visit Provider Nurse Practitioner Adult Health
DX: I71.21 Aneurysm of the ascending aorta, without rupture (principal)
CPT/HCPCS: 71250